=== PATIENT | male | born 1950 | race Caucasian/White ===

== ENCOUNTER 2018-09-28 11:01 | Inpatient (IN) | payer MEDICARE, SELFPAY ==
[2018-09-28] VITALS (11 sets, daily range): BP systolic 103–135; BP diastolic 59–102; PULSE 82–160; RESP 14–23; TEMP 36.2–36.7; O2SAT 93–100; BMI 27.3
--- NOTE | 2018-09-28 | DI.ECHO.S_ITS ---
[facility] +---------+ : : [address] : : : : [place], [place] : : : : [id number] : : : : Phone: [phone] Echocardiogram Report + + :Name: ARMINDA ANGEL Study Date: 09/30/2018 Height: 69 in : :[facility] Exam Location: [facility] Weight: 185 lb : : Gender: Male BSA: 2.0 m2 : :: 1950 Age: 67 yrs BP: 135/77 mmHg: :Reason For Study: AFIB : : Performed By: Cali Santos : + + Interpretation Summary Afib with RVR. Normal LV size, mild-moderately concentric LVH; normal wall motion and LV systolic function. EF is 60-65%. Mildly dilated LA; otherwise normal chamber sizes. Normal valvular structure and function. No prior study available for comparison. Procedure: A two-dimensional transthoracic echocardiogram with color flow and Doppler was performed. The study quality was technically good. There is no prior echocardiogram noted for this patient. The patient was in atrial fibrillation with rapid ventricular response during the exam with a heart rate exceeding 100 bpm. The patient had a heart rate of 98-136 beats per minute. Left Ventricle: The left ventricle is normal in size. Left ventricular wall thickness is mild-moderately increased. The ejection fraction is estimated to be 60-65%. There are no focal wall motion abnormalities. There is a mild dyssynchronous contraction pattern, consistent with a conduction abnormality. Right Ventricle: The right ventricle is normal size. Right ventricular systolic function is mildly reduced. Atria: The left atrium is mildly dilated. Right atrial size is normal. The interatrial septum is intact with no evidence for an atrial septal defect. Mitral Valve: The mitral valve is normal in structure and function. There is mild mitral regurgitation. Aortic Valve: The aortic valve is trileaflet. The aortic valve opens well. No aortic regurgitation is present. Tricuspid Valve: The tricuspid valve is normal in structure and function. There is mild to moderate tricuspid regurgitation. The right ventricular systolic pressure is estimated to be at least 29 mmHg based on an estimated right atrial pressure of 8 mm Hg. Pulmonic Valve: The pulmonic valve is not well visualized. Great Vessels: The aortic root is normal size. The dimensions of the ascending aorta are normal. The pulmonary artery is normal size. The IVC is dilated (diameter is greater than 2.1 cm) yet it collapses greater than 50% with a sniff. This suggests a right atrial pressure of 8 mm Hg. Pericardium/ Pleura There is no pericardial effusion. There is no pleural effusion. MMode/2D Measurements & Calculations LVIDd: 4.6 cm Ao root diam: 3.0 cm LVIDs: 2.9 cm Aortic Jxn: 2.5 cm FS: 36.7 % asc Aorta Diam: 3.3 cm EPSS: 0.66 cm Ao Arch Diam (Prox Trans): 2.9 cm IVSd: 1.4 cm LVPWd: 1.2 cm LV levin. diameter/BSA (cm/m^2): 2.3 LV sys. diameter/BSA (cm/m^2): 1.5 LA dimension: 3.9 cm RA long axis: 4.3 cm LA A2 area: 22.5 cm2 RA area: 14.9 cm2 LA A4 area: 24.8 cm2 RA vol: 43.6 ml LA length (vol): 6.3 cm RA : 21.8 ml/m2 LA vol: 75.2 ml IVC diam: 2.5 cm LA vol index: 37.7 ml/m2 Doppler Measurements & Calculations Ao V2 max: 97.1 cm/sec LVOT Max David: 60.0 cm/sec Ao V2 mean: 69.2 cm/sec LV V1 max P.5 mmHg Ao max P.8 mmHg LV V1 VTI: 8.8 cm Ao mean P.1 mmHg sev ratio: 0.55 Ao V2 VTI: 15.9 cm MV E max david: 90.2 cm/sec TR max david: 226.9 cm/sec MV A max david: 1.7 cm/sec TR max P.6 mmHg MV E/A: 52.2 PA V2 max: 46.5 cm/sec Med Peak E' David: 6.0 cm/sec PA V2 mean: 34.7 cm/sec E/E' med: 15.1 PA mean P.54 mmHg Lat Peak E' David: 11.2 cm/sec PA pr(Accel): 36.6 mmHg E/E' lat: 8.0 PA Accel Time: 0.08 sec E/e' average: 11.6 MV dec time: 0.11 sec Reading Physician:07:31 PM
--- NOTE | 2018-09-28 | DI.CT.S_ITS ---
PROCEDURE: CT LUMBAR SPINE WO CON INDICATIONS: BACK PAIN TECHNIQUE: Noncontrast 3 mm thick sections acquired from the T12 level to the sacrum. Sagittal and coronal reformats were constructed. For radiation dose reduction, the following was used: automated exposure control. COMPARISON: [facility], CT, ABDOMEN/PELVIS WITH CONTRAST, 06/10/2017, 15:33. FINDINGS: Image quality: Excellent. Bones: No acute vertebral body compression fractures. There are mild compression deformities seen involving each lumbar level, without acute features. The compression deformities appear similar to the 2017 CT examination. No suspicious lytic or blastic bony lesions. Central spinal caliber is of normal overall caliber. No pars defects. Mild dextroconvex scoliotic curvature is seen. No focal AP alignment abnormality is seen. T12-L1: Normal. L1-L2: Normal. L2-L3: The disc height is relatively well-preserved. Mild disc bulge is seen. There is mild bilateral neural foraminal narrowing seen. Mild to moderate central canal narrowing is seen. L3-L4: The disc height is well-preserved. Vacuum disc phenomenon is seen at this level. Mild to moderate disc bulge is seen, which is eccentric to the left. There is moderate bilateral neural foraminal narrowing seen, left worse than right. Mild central canal narrowing is seen. L4-L5: Mild to moderate loss of disc height is seen on the right side. Vacuum disc phenomenon is seen at this level. Moderate generalized disc bulge is seen. Mild facet joint hypertrophy is seen. There is moderate to severe bilateral neural foraminal narrowing seen at this level. Mild to moderate central canal narrowing is seen. L5-S1: The disc height is relatively well-preserved. Mild generalized disc bulge is seen. Mild facet joint hypertrophy is seen. There is moderate left-sided and mild right-sided neural foraminal narrowing seen. No significant central canal narrowing is seen. Soft tissues: No retroperitoneal masses or hematomas. Visualized aorta is normal in caliber. Atherosclerotic calcification is noted. The kidneys appear mildly atrophic. IMPRESSION: No definite, acute abnormalities are seen. Multiple levels of compression deformities are seen, which are similar to 2017. Multiple levels of degenerative change are seen, which are most prominent at the L4-L5 level. Dictated by: René Dunn M.D. on 09/28/2018 at 14:55 Approved by: René Dunn M.D. on 09/28/2018 at 15:00
[2018-09-28 11:36] LABS: Add Manual Diff / Slide Review NO; Basophils Percent Auto 0.7 % (0-2); Hematocrit 45.5 % (41-53); Hemoglobin 15.2 g/dL (13.5-17.5); Mean Corpuscular HGB Conc 33.3 % (30-36); Mean Corpuscular Hemoglobin 33.5 PG (26-34); Mean Corpuscular Volume 100.6 fL (80-100); Monocytes Percent Auto 9.3 % (3-14); Neutrophils Absolute Auto 2300 /uL (3000-5900); Platelet Count 160 X10^3/uL (150-400); Red Blood Cell Count 4.52 X10^6/uL (4.5-5.9); Red Cell Distribution Width 14.2 % (11.6-14.8); White Blood Cell Count 3.7 X10^3/uL (4.5-11.0)
[2018-09-28 11:48] LABS: Alanine Aminotransferase 31 IU/L (21-72); Albumin 3.8 g/dL (3.5-5.0); Albumin Globulin Ratio 1.1 (1.0-2.8); Alkaline Phosphatase 94 U/L (38-126); Aspartate Aminotransferase 44 IU/L (17-59); BUN Creatinine Ratio 16.7 (6-22); Bilirubin Total 0.6 mg/dL (0.2-1.3); Blood Urea Nitrogen 15 mg/dL (9-20); Calcium 8.7 mg/dL (8.4-10.2); Carbon Dioxide 29 mmol/L (22-32); Chloride 105 mmol/L (98-107); Creatine Kinase 66 U/L (55-170); Estimated Glomerular Filt Rate > 60.0 mL/min (>60); Globulin 3.4 g/dL (1.7-4.1); Glucose 90 mg/dL (80-110); HEMOLYSIS 19 (0-50); Lipase 61 U/L (23-300); Potassium 3.6 mmol/L (3.4-5.1); Sodium 143 mmol/L (137-145); Total Protein 7.2 g/dL (6.3-8.2)
[2018-09-28] MEDS: SODIUM CHLORIDE 0.9% 1,000 ML 1000 ML IV (11:53)
[2018-09-28] MEDS: KETOROLAC 60 MG/2 ML VIAL 15 MG IV (11:54)
[2018-09-28] MEDS: dilTIAZem 5 MG/ML SDV 20 MG IV (11:54)
[2018-09-28 11:59] LABS: Troponin I 0.041 ng/mL (0.01-0.034)
--- NOTE | 2018-09-28 12:12 | PC.NURSE ---
Pt complained itching in on arm with IV. Reports itching started immediately after iv medications were pushed. Erythemic rash noted on fore arm. Informed the provider. No new orders at this time.
[2018-09-28] MEDS: SODIUM CHLORIDE 0.9% 1,000 ML 100 ML IV (14:32)
[2018-09-28] MEDS: METOPROLOL TARTRATE 5 MG/5 ML INJ IV ×2 (14:35→17:15)
--- NOTE | 2018-09-28 15:19 | P.HP_ITS ---
History of Present Illness Date Patient Seen: 09/28/18 Time Patient Seen: 15:16 Chief complaint: PAIN L SIDE BACK PAIN ALL THE WAY ACROSS Narrative: - PATIENT IS A 67 YO MALE WITH A PAST MEDICAL HISTORY SIGNIFICANT FOR ETOH ABUSE AND POSS HTN ; NO PCP; LIVES WITH FAMILY; NON COMPLIANT MEDICALLY - PATIENT IS NOT TAKING ANY RX MEDICATIONS AND QUICK ETOH USE 2 WEEKS AGO - HE PRESENTED TO THE ED WITH COMPLAINT OF BACK PAIN; WEAKNESS AND SOB FOR LAST FEW DAYS - HE STATED THAT HE HAS BEEN FEELING WEAK AND OUT OF BREATH DURING AMBULATION THIS DAYS - HE DOES ADMIT TO A SEDENTARY LIFESTYLE HOWEVER - HE REPORTED SOME LOWER BACK PAIN ASSOCIATED WITH ACTIVITIES WHICH HAS BEEN WORSENING LATELY - HE DENIED ANY PROSTATE ISSUES AND NO HX OF RENAL STONES OR INJURIES IN THE ED, HE WAS FOUND TO HAVE ATRIAL FIB WHICH IS NEW TO ME, GIVEN CARDIZEM AND REFERRED FOR ADMISSION FOR FURTHER MANAGEMENT HIS MOTHER AND BROTHER IN THE ROOM BOTH HAVE AFIB . Patient History Family & Social History Family History: Reviewed 09/28/18 by Shelly Hardy DO Safety & Behavioral: Feels Safe in Current Yes Environment Been Physically Hurt or No Threatened By a Person Tobacco & Substance use: Smoking Status Current every day smoker alcohol intake frequency other Substance Use Type does not use Meds Home Medications Medication Instructions Recorded Confirmed Type No Known Home Medications 09/28/18 09/28/18 History Allergies Allergy/AdvReac Type Severity Reaction Status Date / Time No Known Drug Allergies Allergy Verified 09/28/18 11:42 Review of Systems Review of Systems All systems reviewed & are unremarkable except as noted in HPI and below Exam Vital Signs (past 8 hours): - 09/28/18 11:05 09/28/18 11:30 09/28/18 11:54 Temperature 98.1 F Pulse Rate 160 H 154 H 138 H Respiratory Rate 14 23 Blood Pressure 133/102 H 133/100 H Blood Pressure [Left Arm] 127/99 H Pulse Oximetry 100 99 09/28/18 12:00 09/28/18 12:30 09/28/18 14:00 Temperature 97.3 F L Pulse Rate 89 82 118 H Respiratory Rate 17 21 16 Blood Pressure 133/90 Blood Pressure [Left Arm] 103/71 108/81 Pulse Oximetry 93 97 97 09/28/18 14:02 09/28/18 14:43 09/28/18 15:00 Temperature 97.4 F L Pulse Rate 108 H 106 H 106 H Respiratory Rate 22 20 Blood Pressure 126/88 114/80 135/90 Blood Pressure [Left Arm] Pulse Oximetry 98 97 Oxygen Delivery Method Room Air Narrative Exam Narrative: NO ACUTE DISTRESS. PATIENT IS ALERT ORIENTED X3. VITAL SIGNS STABLE HEAD ATRAUMATIC NORMOCEPHALIC NECK : SUPPLE WITHOUT ADENOPATHY NO CAROTID BRUITS EYE: EOMI, PERRLA, NORMAL CONJUNCTIVA; NO JAUNDICE CHEST: REGULAR RATE. NO RUBS. PMI IS NON DISPLACED. NO MURMURS; NORMAL S1- S2 PULMONARY: DECREASED BS OVER THE BASES. MILD BIBASILAR CRACKLES NOTED; NO INCREASED DULLNESS TO PERCUSSION ABDOMEN: SOFT. NONTENDER. NONDISTENDED. BOWEL SOUNDS ARE PRESENT IN ALL 4 QUADRANTS. NO MASS. EXTREMITIES: NO EDEMA.. NO CYANOSIS CLUBBING NOTED. NEURO: CRANIAL NERVES 2-12 GROSSLY INTACT. NO FOCAL NEUROLOGICAL DEFICIT NOTED. MSK: NORMAL RANGE OF MOTION FOR AGE. NO JOINT EFFUSION. SKIN: NORMAL FOR ETHNICITY; NO ECCHYMOSIS. NO LESION. GOOD TURGOR.; NO RASHES : NORMAL EXTERNAL GENITALIA. PSYCH : APPROPRIATE MOOD AND AFFECT. ALERT AWAKE ORIENTED X3 Objective Labs Result Diagrams: 09/28/18 11:22 09/28/18 11:22 Labs: Laboratory Results - last 24 hr 09/28/18 09/28/18 11:22 11:22 WBC 3.7 L RBC 4.52 Hgb 15.2 Hct 45.5 MCV 100.6 H MCH 33.5 MCHC 33.3 RDW 14.2 Plt Count 160 Neut % (Auto) 61.0 Lymph % (Auto) 28.0 [place] % (Auto) 9.3 Eos % (Auto) 1.0 L Baso % (Auto) 0.7 Neut # (Auto) 2300 L Sodium 143 Potassium 3.6 Chloride 105 Carbon Dioxide 29 BUN 15 Creatinine 0.90 Estimated GFR > 60.0 BUN/Creatinine Ratio 16.7 Glucose 90 Calcium 8.7 Total Bilirubin 0.6 AST 44 ALT 31 Alkaline Phosphatase 94 Total Creatine Kinase 66 CK-MB (CK-2) TNP CK-MB (CK-2) Rel Index TNP Troponin I 0.041 H Total Protein 7.2 Albumin 3.8 Globulin 3.4 Albumin/Globulin Ratio 1.1 Lipase 61 Assessment & Plan Plan: Assessment/Plan Narrative: IMPRESSION AND PLAN NEW ONSET AFIB; ANKUSH SCORE IS ABOUT 2; HR CONTROLLED AFTER CARDIZEM BOLUS GIVEN IN ED; WILL START ON METOPROLOL THIS PM AT LOW DOSE IF ABLE TO TORO; LEVONOX AND WARFARIN TO BE STARTED WELL; GET ECHO WELL; TELE AT ALL TIMES; GET UA AND TSH; SERIAL EKG TO FOLLOW INDICATED SOB/LINDO; LIKELY DUE TO PHYSICAL DECONDITIONING ; WILL GET CT LOWET BACK TO RULE ANY OTHER PATHOLOGY; PT/OT; AMBULATE TID ; OOB/ IN CHAIR WITH EACH MEAL; ECHO TO RULE OUT CARDIAC COMPONENT ETOH ABUSE; CIWA ; WATCH FOR S/S OF WITHDRAWALS; PRN ATIVAN ORDERED ; CONSIDER LIBRIUM INDICATED MACROCYTOSIS WITHOUT ANEMIA; MONITOR ONLY FOR NOW ELEVATED TROP; LIKELY DUE TO CARDIAC STRAIN DUE TO EXCESSIVE HR; NO ACS SUSPECTED; MON ITOR WITH AM LABS POSS HTN PER HX; METOPROLOL; TREAT INDICATED MEDICAL NON COMPLIANCE; EXTENSIVE COUNSELING GIVEN DURATION OF STAY : 3-5 DAYS TIME SPEND 45 MINS
--- NOTE | 2018-09-28 15:42 | PC.NURSE ---
Raymundo arrived from ED at 1405 via stretcher. His HR ranged from 109-126. Tele shows Afib. He was given Metoprolol 5mg IVP. Per report from ED RN, his Troponin was slightly elevated. Raymundo denies chest pain or shortness of breath. Color pink. Resting quietly in bed. Supportive family present. IV saline lock L forearm appears stable in that pen haylie parameters have not been exceeded.
[2018-09-28] MEDS: HYDROCODONE/ACET 5/325 TABLET 1 TAB PO (16:09)
[2018-09-28] MEDS: DIGOXIN 500 MCG/2 ML AMPUL IV (16:12)
[2018-09-28 17:10] LABS: Appearance Urine UA CLEAR; Bilirubin Urine UA NEGATIVE (NEGATIVE); Color Urine UA YELLOW; Glucose Urine UA TRACE g/dL (Normal); Ketones Urine UA NEGATIVE (NEGATIVE); Leukocyte Esterase Urine UA NEGATIVE (NEGATIVE); Nitrite Urine UA NEGATIVE (Negative); Occult Blood Urine UA NEGATIVE (Negative); Protein Urine UA 1+ (Negative); Specific Gravity Urine UA 1.025 (1.000-1.035); Urobilinogen Urine UA 0.2 E.U./dL (0.2)
[2018-09-28] MEDS: WARFARIN 5 MG TABLET PO (17:15)
--- NOTE | 2018-09-28 17:41 | ED_ITS ---
HPI - Back Pain/Injury General Chief Complaint: Back Pain/Injury Stated Complaint: PAIN L SIDE BACK PAIN ALL THE WAY ACROSS Time Seen by Provider: 09/28/18 11:13 Source: patient and family Mode of arrival: ambulatory Limitations: no limitations History of Present Illness HPI Narrative: 67-year-old male, nonsmoker with history of hypertension at extensive alcohol abuse presents with family for evaluation of low back pain which has been present for a few weeks. He states that he thinks his back pain was worsened when he was lifting pallets for his toe back home in [place]. He came to [place] about 3 weeks ago when he was starting to go down a depressive pathway in [place] and wanted to be around friends and family. He routinely drinks at least 6 beers per day but has had no alcohol in the past few weeks. He denies any trouble controlling bowel or bladder. He denies numbness, tingling or weakness. He states his pain is worse with motion and improves with rest. He denies any chest pain or shortness of breath. MD Complaint: back pain Onset (ago): week(s) Duration: constant Similar Symptoms Previously: Yes Location: lumbar spine Severity: moderate Quality: aching Radiation: none Relieving factors: none Exacerbating factors: none Context: while lifting Associated symptoms: denies other symptoms Related Data Home Medications Medication Instructions Recorded Confirmed No Known Home Medications 09/28/18 09/28/18 Allergies Allergy/AdvReac Type Severity Reaction Status Date / Time No Known Drug Allergies Allergy Verified 09/28/18 11:42 Review of Systems Review of Systems All systems reviewed & are unremarkable except as noted in HPI and below Constitutional Denies chills, Denies fever(s), Denies lethargy and Denies weakness Eyes Denies change in vision, Denies eye discharge, Denies irritation and Denies loss of vision ENT Ears, Nose, Mouth, and Throat: Denies change in voice, Denies neck pain and Denies sore throat Cardiovascular Denies chest pain, Denies irregular heart rhythm, Denies lightheadedness, Denies palpitations, Denies dyspnea, Denies dyspnea on exertion and Denies orthopnea Respiratory Denies cough, Denies dyspnea, Denies dyspnea on exertion and Denies wheezing Gastrointestinal Gastrointestinal: Denies abdominal pain, Denies change in bowel habits, Denies diarrhea, Denies nausea and Denies vomiting Genitourinary Denies hematuria, Denies flank pain, Denies urinary incontinence and Denies urinary urgency Musculoskeletal Reports back pain and Denies neck pain Integumentary/Breasts Denies pruritus, Denies erythema, Denies rash and Denies wounds Neurologic Denies confusion, Denies loss of vision and Denies weakness Psychiatric Denies anxiety, Denies confusion, Denies depression, Denies homicidal ideation and Denies suicidal ideation Endocrine Denies palpitations Hematologic/Lymphatic Denies easy bruising Allergic/Immunologic Denies wheezing PFSH Medical History ETOH abuse (Acute) Family History Father Heart disease Mental health problem Mother Age: 88 Cancer Heart disease Hypertension Sister Heart disease Mental health problem Pacemaker Social History household members: none Smoking Status: Former smoker alcohol intake: former Exam Narrative Exam Narrative: GENERAL: Pleasantly confused 67-year-old male in no obvious distress. HEAD: Atraumatic. Normocephalic. No temporal or scalp tenderness. EYES: Pupils equal round and reactive. Extraocular motions intact. No scleral icterus. No injection or drainage. ENT: Nose without bleeding, purulent drainage or septal hematoma. Throat without erythema, tonsillar hypertrophy or exudate. Uvula midline. Airway patent. NECK: Trachea midline. No JVD or lymphadenopathy. Supple, nontender, no meningeal signs. CARDIOVASCULAR: Tachycardic and irregular rhythm without murmurs, gallops, or rubs. RESPIRATORY: Clear to auscultation. Breath sounds equal bilaterally. No wheezes , rales, or rhonchi. GASTROINTESTINAL: Abdomen soft, non-tender, nondistended. No hepato-splenomegaly , or palpable masses. No guarding. EXTREMITIES: No clubbing, cyanosis, or edema. No joint tenderness, effusion, or edema noted. BACK: Nontender without deformity or crepitance. Mild tenderness to palpation of paraspinal muscles of lumbar spine NEURO: AOx3. SKIN: No rash or erythema. Initial Vital Signs Initial Vital Signs: Vital Signs Temperature 98.1 F 09/28/18 11:05 Pulse Rate 160 H 09/28/18 11:05 Respiratory Rate 14 09/28/18 11:05 Blood Pressure 133/102 H 09/28/18 11:05 Pulse Oximetry 100 09/28/18 11:05 Scores CHADS-VASc Congestive heart failure: no Hypertension: yes Age 75 years or older: no Diabetes mellitus: no Stroke, TIA, or TE: no Vascular disease: no Age 65 to 74 years: yes Sex category (female): Male CHADS-VASc Score: 2 Course Orders Ordered: ED Orders 09/28/18 11:22 Complete Blood Count AUTO DIFF Stat Comprehensive Metabolic Panel Stat Lipase Stat Troponin & CK Cardiac Panel Stat 09/28/18 15:43 Consult to Occupational Therapy Evaluate & Treat Consult to Physical Therapy Evaluate & Treat 09/28/18 16:08 Consult to Salt Washer Routine 09/28/18 17:00 Urinalysis Sreen (Dip Only) Routine 09/28/18 17:25 TSH w/ Reflex to FT4 Routine 09/29/18 05:00 CBC [Complete Blood Count AUTO DIFF] DAILY Comprehensive Metabolic Panel DAILY Magnesium DAILY Phosphorous DAILY Trop I [Troponin I] Routine Acetaminophen (Tylenol) 650 mg PO Q6HR PRN PRN Reason: As Needed for Fever/Mild Pain Hydrocodone Bitart/Acetaminophen ([place] 5/325) 1 tab PO Q4HR PRN PRN Reason: Pain, Moderate (4-6) Last Admin: 09/28/18 16:09 Dose: 1 tab Digoxin (Lanoxin) 500 mcg IV DAILY PRN PRN Reason: HR >110 Last Admin: 09/28/18 16:12 Dose: 500 mcg Enoxaparin Sodium (Lovenox) 85 mg 1 mg/kg (85 mg) SUBCUT BID [facility] Sodium Chloride (Normal Saline 0.9%) 1,000 mls @ 100 mls/hr IV CONT [place] Last Admin: 09/28/18 14:32 Dose: 100 mls/hr Lorazepam (Ativan) 0.5 mg IV Q6HR PRN PRN Reason: Anxiety Metoprolol Tartrate (Lopressor) 12.5 mg PO BID [facility] Metoprolol Tartrate (Lopressor) 5 mg IV Q6H PRN PRN Reason: SBP>180 AND/OR HR >110 Last Admin: 09/28/18 14:35 Dose: 5 mg Morphine Sulfate (Morphine) 2 mg IV Q4HR PRN PRN Reason: Pain, Moderate (4-6) Pantoprazole Sodium (Protonix) 40 mg IV DAILY [place] Tramadol HCl (Ultram) 50 mg PO QID PRN PRN Reason: Pain, Moderate (4-6) Discontinued Medications Acetaminophen (Tylenol) 650 mg PO Q6HR PRN PRN Reason: As Needed for Fever/Mild Pain Digoxin (Lanoxin) 500 mcg IV DAILY PRN PRN Reason: HR >110 Diltiazem HCl (Cardizem) 20 mg IV NOW ONE Stop: 09/28/18 11:46 Last Admin: 09/28/18 11:54 Dose: 20 mg Sodium Chloride (Normal Saline 0.9%) 1,000 mls @ 1,000 mls/hr IV BOLUS PRN PRN Reason: Fluid replacement Last Infusion: 09/28/18 13:14 Dose: 0 mls/hr Admin: 09/28/18 11:53 Dose: 1,000 mls/hr Ketorolac Tromethamine (Toradol) 15 mg IV NOW ONE Stop: 09/28/18 11:46 Last Admin: 09/28/18 11:54 Dose: 15 mg Metoprolol Tartrate (Lopressor) 12.5 mg PO BID [place] Metoprolol Tartrate (Lopressor) 5 mg IV Q6H PRN PRN Reason: SBP>180 AND/OR HR >110 Metoprolol Tartrate (Lopressor) 5 mg IV NOW ONE Stop: 09/28/18 16:55 Last Admin: 09/28/18 17:15 Dose: 5 mg Morphine Sulfate (Morphine) 2 mg IV Q4HR PRN PRN Reason: Pain, Severe (7-10) Morphine Sulfate (Morphine) 2 mg IV Q4HR PRN PRN Reason: Pain, Severe (7-10) Pantoprazole Sodium (Protonix) 40 mg IV DAILY [facility] Warfarin Sodium (Coumadin) 5 mg PO NOW ONE Stop: 09/28/18 15:34 Last Admin: 09/28/18 17:15 Dose: 5 mg Reevaluation(s) Reevaluation #1: Or getting initial vitals heart rate was noted to be in the 160s. Patient is put on the monitor and an EKG notes rapid AFib which to the best we can tell is a new diagnosis. Reevaluation #2: Patient was given Cardizem 10 mg IVP which did slow him to the mid to upper 80s, he gradually was creeping back up to upper 90s and low 100s by admission Consultations Consultation #1: Dr. Martinez is happy to accept Vital Signs - 8 hr 09/28/18 11:05 09/28/18 11:30 09/28/18 11:54 Temperature 98.1 F Pulse Rate 160 H 154 H 138 H Respiratory Rate 14 23 Blood Pressure 133/102 H 133/100 H Blood Pressure [Left Arm] 127/99 H Pulse Oximetry 100 99 09/28/18 12:00 09/28/18 12:30 09/28/18 14:00 Temperature 97.3 F L Pulse Rate 89 82 118 H Respiratory Rate 17 21 16 Blood Pressure 133/90 Blood Pressure [Left Arm] 103/71 108/81 Pulse Oximetry 93 97 97 09/28/18 14:02 09/28/18 14:43 09/28/18 15:00 Temperature 97.4 F L Pulse Rate 108 H 106 H 106 H Respiratory Rate 22 20 Blood Pressure 126/88 114/80 135/90 Blood Pressure [Left Arm] Pulse Oximetry 98 97 09/28/18 16:12 Temperature Pulse Rate 124 H Respiratory Rate Blood Pressure 127/59 L Blood Pressure [Left Arm] Pulse Oximetry MDM - Back Pain/Injury Lab Data Result diagrams: 09/28/18 11:22 09/28/18 11:22 Lab Results 09/28/18 09/28/18 09/28/18 Range/Units 11:22 11:22 16:00 WBC 3.7 L (4.5-11.0) X10^3/uL RBC 4.52 (4.5-5.9) X10^6/uL Hgb 15.2 (13.5-17.5) g/dL Hct 45.5 (41-53) % MCV 100.6 H (80-100) fL MCH 33.5 (26-34) PG MCHC 33.3 (30-36) % RDW 14.2 (11.6-14.8) % Plt Count 160 (150-400) X10^3/uL Neut % (Auto) 61.0 (50-75) % Lymph % (Auto) 28.0 (25-40) % [place] % (Auto) 9.3 (3-14) % Eos % (Auto) 1.0 L (2-4) % Baso % (Auto) 0.7 (0-2) % Neut # (Auto) 2300 L (5261-6244) /uL Sodium 143 (137-145) mmol/L Potassium 3.6 (3.4-5.1) mmol/L Chloride 105 (98-107) mmol/L Carbon Dioxide 29 (22-32) mmol/L BUN 15 (9-20) mg/dL Creatinine 0.90 (0.66-1.25) mg/dL Estimated GFR > 60.0 (>60) mL/min BUN/Creatinine Ratio 16.7 (6-22) Glucose 90 (80-110) mg/dL Calcium 8.7 (8.4-10.2) mg/dL Total Bilirubin 0.6 (0.2-1.3) mg/dL AST 44 (17-59) IU/L ALT 31 (21-72) IU/L Alkaline Phosphatase 94 (38-126) U/L Total Creatine Kinase 66 (55-170) U/L CK-MB (CK-2) TNP CK-MB (CK-2) Rel Index TNP Troponin I 0.041 H (0.01-0.034) ng/mL Total Protein 7.2 (6.3-8.2) g/dL Albumin 3.8 (3.5-5.0) g/dL Globulin 3.4 (1.7-4.1) g/dL Albumin/Globulin Ratio 1.1 (1.0-2.8) Lipase 61 (23-300) U/L Urine Color Yellow Urine Appearance Clear Urine pH 5.0 (4.5-8.0) Ur Specific [place] 1.025 (1.000-1.035) Urine Protein 1+ H (Negative) Urine Glucose (UA) Trace (Normal) g/dL Urine Ketones Negative (NEGATIVE) Urine Occult Blood Negative (Negative) Urine Nitrate Negative (Negative) Urine Bilirubin Negative (NEGATIVE) Urine Urobilinogen 0.2 (0.2) E.U./dL Ur Leukocyte Esterase Negative (NEGATIVE) ECG Data Attestation: I personally reviewed and interpreted this ECG as follows: Prior ECG tracings: not available for review Interpretation: Rapid AFib in the 150s MDM Narrative Medical decision making narrative: Diagnoses regarding his back pain such as cauda equina an epidural abscess or considered but thought much less likely given his lack of radiating symptoms or neurologic findings. He is atrial fibrillation is newly diagnosed and he has no primary care provider locally for workup. He will be admitted for further characterization and stabilization of his condition. Discharge Plan Departure Patient Disposition: Admitted As Inpatient Clinical Impression: Atrial fibrillation, new onset Discharge Date/Time: 09/28/18 14:09 Interventions: ED Discharge Assessment Last Done: 09/28/18 14:02 Admit Date/Time: 09/28/18 13:16 Admit Provider: Shelly Hardy
[2018-09-28 18:18] LABS: TSH w/ Reflex to FT4 3.77 uIU/mL (0.47-4.68)
[2018-09-28] MEDS: ACETAMINOPHEN 325 MG TABLET 650 MG PO (19:23)
--- NOTE | 2018-09-28 19:28 | PC.NURSE ---
1650: notified of pt HR and IV metoprolol orders received. Also clarified admission status of inpatient ACUTE CARE, not ICU.
[2018-09-28] MEDS: METOPROLOL IR 12.5 MG TABLET PO (21:19)
[2018-09-28] MEDS: ENOXAPARIN 100 MG/ML SYRINGE 85 MG SUBCUT (22:56)
[2018-09-28] MEDS: TRAMADOL 50 MG TABLET PO (23:12)
[2018-09-28] MEDS: MORPHINE 2 MG/ML INJ IV (23:20)
[2018-09-29] VITALS (10 sets, daily range): BP systolic 102–112; BP diastolic 57–75; PULSE 89–103; RESP 18–20; TEMP 36.1–36.6; O2SAT 93–98
[2018-09-29] MEDS: SODIUM CHLORIDE 0.9% 1,000 ML 100 ML IV (01:15)
[2018-09-29] MEDS: HYDROCODONE/ACET 5/325 TABLET 1 TAB PO ×3 (02:43→21:05)
[2018-09-29 05:43] LABS: Add Manual Diff / Slide Review NO; Basophils Percent Auto 0.5 % (0-2); Eosinophils Percent Auto 1.1 % (2-4); Hematocrit 39.5 % (41-53); Hemoglobin 13.2 g/dL (13.5-17.5); Lymphocytes Percent Auto 35.7 % (25-40); Mean Corpuscular HGB Conc 33.3 % (30-36); Mean Corpuscular Hemoglobin 33.7 PG (26-34); Mean Corpuscular Volume 101.1 fL (80-100); Monocytes Percent Auto 9.6 % (3-14); Neutrophils Absolute Auto 1100 /uL (3000-5900); Neutrophils Percent Auto 53.1 % (50-75); Platelet Count 118 X10^3/uL (150-400); Red Blood Cell Count 3.91 X10^6/uL (4.5-5.9); Red Cell Distribution Width 14.3 % (11.6-14.8); White Blood Cell Count 2.2 X10^3/uL (4.5-11.0)
[2018-09-29 05:54] LABS: Alanine Aminotransferase 30 IU/L (21-72); Albumin 2.7 g/dL (3.5-5.0); Alkaline Phosphatase 60 U/L (38-126); Aspartate Aminotransferase 35 IU/L (17-59); Bilirubin Total 0.5 mg/dL (0.2-1.3); Blood Urea Nitrogen 12 mg/dL (9-20); Calcium 7.9 mg/dL (8.4-10.2); Carbon Dioxide 26 mmol/L (22-32); Chloride 107 mmol/L (98-107); Estimated Glomerular Filt Rate > 60.0 mL/min (>60); Globulin 2.6 g/dL (1.7-4.1); Glucose 82 mg/dL (80-110); HEMOLYSIS < 15 (0-50); Magnesium 1.4 mg/dL (1.6-2.3); Phosphorous 2.7 mg/dL (2.3-3.7); Potassium 3.8 mmol/L (3.4-5.1); Sodium 140 mmol/L (137-145); Total Protein 5.3 g/dL (6.3-8.2)
[2018-09-29 06:00] LABS: Troponin I 0.053 ng/mL (0.01-0.034)
--- NOTE | 2018-09-29 06:52 | PC.NURSE ---
Nice gentleman, scared and worried about being here. He is from out of town and came to visit his mother. Admitted with back pain he states started when he moved something at home. He was discovered to have new onset afib. Echo ordered, continue to enlighten patient as much as possible to alleviate his concerns. Pain in night was hard to control. Morphine IVP and norco given. This combo worked, and he now feels he is not needing pain med at this time. Sat upright in bed, with pillows behind him. More comfortable at this time.
[2018-09-29 08:48] LABS: INR 1.3 (0.9-1.3)
--- NOTE | 2018-09-29 09:08 | CM.DANOTE ---
DCP: Case received, EMR reviewed and met with patient. Introduced self and role. DCP template completed with information currently available. Patient is a 67 year old male who admitted yesterday afternoon to the care of the hospitalist team. Patient does not have a primary doctor. Payer: confirmed; Medicare. Patient came to hospital with symptoms of lower back discomfort. Patient carries diagnosis of A-Fib. Patient also has history of ETOH abuse, and according to notes, stopped drinking approximately 2 weeks ago. Patient is on CIWA protocol as well. Met with patient in room. Alert and oriented, pleasant. Stated that he is originally from [place], [place], and came up here at family's request. Stated that he has a large home in [place], [place], which is near [place]. Patient stated that he misses his home, and eventually wants to go back there. At this time, patient is staying with his mother and brother. P:DCP to continue to follow. Patient should be able to return home when stable, but will monitor how he progresses here in hospital. Jenn Suggs RN/Youth Development Specialist
[2018-09-29] MEDS: ASPIRIN EC 81 MG TABLET PO (09:34)
[2018-09-29] MEDS: ENOXAPARIN 100 MG/ML SYRINGE 85 MG SUBCUT ×2 (09:35→21:02)
[2018-09-29] MEDS: PANTOPRAZOLE 40 MG VIAL IV (09:35)
[2018-09-29] MEDS: METOPROLOL IR 12.5 MG TABLET PO ×2 (09:35→21:02)
[2018-09-29] MEDS: ACETAMINOPHEN 325 MG TABLET 650 MG PO ×2 (09:36→13:52)
--- NOTE | 2018-09-29 10:23 | PC.NURSE ---
Addendum entered by Chiqui Machuca R.N. 09/29/18 13:59: Shift summary: Alert and oriented X3. Calm and cooperative with care interventions. Back pain well-controlled with PO Vicodin (rated 4/10 prior to being medicated this morning). CMS+, denies paresthesias or issues with B/B. Denies chest pain/palpitations/pressure or SOB. Tele monitoring in place, reading A-fib with controlled rate per tele report. His heart rate did jump up into the 130's-140's with activity, but goes back down into the 80-100 range at rest. Did NOT require any PRN meds for HR/BP. Troponins trending down, MD aware. Able to make needs known and calls appropriately. Light in reach, bed alarm on. OOB with stand-by assist. Original Note: ECHO: Refused ECHO at approx 1000. This telegraphic typewriter repairer let MD Martinez know- he said it's patient's right to refuse, so that's okay. Per geophysical data technician, can be done tomorrow if patient decides he's agreeable.
--- NOTE | 2018-09-29 11:46 | P.PN_ITS ---
Subjective Date Patient Seen: 09/29/18 Time Patient Seen: 11:45 Interval history: NO PAIN NO SOB OR LINDO DENIED ANY CHEST PAIN OR CHEST PALPITATIONS NURSING REPORTED THAT PATIENT REFUSED HIS ECHO Exam Vital Signs (past 8 hours): - 09/29/18 06:00 09/29/18 07:29 09/29/18 07:40 Temperature 97.8 F 97.4 F L Pulse Rate 102 H 103 H Respiratory Rate 18 20 Blood Pressure 109/62 112/75 Pulse Oximetry 98 95 96 09/29/18 10:23 09/29/18 11:20 Temperature 97.7 F Pulse Rate 99 H Respiratory Rate 20 Blood Pressure 107/71 Pulse Oximetry 95 93 Oxygen Delivery Method Room Air Oxygen Flow Rate 0 Narrative Exam Narrative: NO ACUTE DISTRESS. PATIENT IS ALERT ORIENTED X3. VITAL SIGNS STABLE HEAD ATRAUMATIC NORMOCEPHALIC NECK : SUPPLE WITHOUT ADENOPATHY NO CAROTID BRUITS EYE: EOMI, PERRLA, NORMAL CONJUNCTIVA; NO JAUNDICE CHEST: REGULAR RATE. NO RUBS. PMI IS NON DISPLACED. NO MURMURS; NORMAL S1- S2 PULMONARY: DECREASED BS OVER THE BASES. MILD BIBASILAR CRACKLES NOTED; NO INCREASED DULLNESS TO PERCUSSION ABDOMEN: SOFT. NONTENDER. NONDISTENDED. BOWEL SOUNDS ARE PRESENT IN ALL 4 QUADRANTS. NO MASS. EXTREMITIES: NO EDEMA.. NO CYANOSIS CLUBBING NOTED. NEURO: CRANIAL NERVES 2-12 GROSSLY INTACT. NO FOCAL NEUROLOGICAL DEFICIT NOTED. MSK: NORMAL RANGE OF MOTION FOR AGE. NO JOINT EFFUSION. SKIN: NORMAL FOR ETHNICITY; NO ECCHYMOSIS. NO LESION. GOOD TURGOR.; NO RASHES : NORMAL EXTERNAL GENITALIA. PSYCH : APPROPRIATE MOOD AND AFFECT. ALERT AWAKE ORIENTED X3 Objective Labs Result Diagrams: 09/29/18 05:09 09/29/18 05:09 Labs: Laboratory Results - last 24 hr 09/28/18 09/28/18 09/28/18 11:22 16:00 17:25 WBC RBC Hgb Hct MCV MCH MCHC RDW Plt Count Neut % (Auto) Lymph % (Auto) Rice % (Auto) Eos % (Auto) Baso % (Auto) Neut # (Auto) PT INR Sodium 143 Potassium 3.6 Chloride 105 Carbon Dioxide 29 BUN 15 Creatinine 0.90 Estimated GFR > 60.0 BUN/Creatinine Ratio 16.7 Glucose 90 Calcium 8.7 Phosphorus Magnesium Total Bilirubin 0.6 AST 44 ALT 31 Alkaline Phosphatase 94 Total Creatine Kinase 66 CK-MB (CK-2) TNP CK-MB (CK-2) Rel Index TNP Troponin I 0.041 H Total Protein 7.2 Albumin 3.8 Globulin 3.4 Albumin/Globulin Ratio 1.1 Lipase 61 TSH 3.77 Urine Color Yellow Urine Appearance Clear Urine pH 5.0 Ur Specific [place] 1.025 Urine Protein 1+ H Urine Glucose (UA) Trace Urine Ketones Negative Urine Occult Blood Negative Urine Nitrate Negative Urine Bilirubin Negative Urine Urobilinogen 0.2 Ur Leukocyte Esterase Negative 09/29/18 09/29/18 09/29/18 05:09 05:09 05:09 WBC 2.2 L RBC 3.91 L Hgb 13.2 L Hct 39.5 L MCV 101.1 H MCH 33.7 MCHC 33.3 RDW 14.3 Plt Count 118 L Neut % (Auto) 53.1 Lymph % (Auto) 35.7 Rice % (Auto) 9.6 Eos % (Auto) 1.1 L Baso % (Auto) 0.5 Neut # (Auto) 1100 L PT INR Sodium 140 Potassium 3.8 Chloride 107 Carbon Dioxide 26 BUN 12 Creatinine 0.80 Estimated GFR > 60.0 BUN/Creatinine Ratio 15.0 Glucose 82 Calcium 7.9 L Phosphorus 2.7 Magnesium 1.4 L Total Bilirubin 0.5 AST 35 ALT 30 Alkaline Phosphatase 60 Total Creatine Kinase CK-MB (CK-2) CK-MB (CK-2) Rel Index Troponin I 0.053 H Total Protein 5.3 L Albumin 2.7 L Globulin 2.6 Albumin/Globulin Ratio 1.0 Lipase TSH Urine Color Urine Appearance Urine pH Ur Specific [place] Urine Protein Urine Glucose (UA) Urine Ketones Urine Occult Blood Urine Nitrate Urine Bilirubin Urine Urobilinogen Ur Leukocyte Esterase 09/29/18 08:31 WBC RBC Hgb Hct MCV MCH MCHC RDW Plt Count Neut % (Auto) Lymph % (Auto) Rice % (Auto) Eos % (Auto) Baso % (Auto) Neut # (Auto) PT 15.0 H INR 1.3 Sodium Potassium Chloride Carbon Dioxide BUN Creatinine Estimated GFR BUN/Creatinine Ratio Glucose Calcium Phosphorus Magnesium Total Bilirubin AST ALT Alkaline Phosphatase Total Creatine Kinase CK-MB (CK-2) CK-MB (CK-2) Rel Index Troponin I Total Protein Albumin Globulin Albumin/Globulin Ratio Lipase TSH Urine Color Urine Appearance Urine pH Ur Specific [place] Urine Protein Urine Glucose (UA) Urine Ketones Urine Occult Blood Urine Nitrate Urine Bilirubin Urine Urobilinogen Ur Leukocyte Esterase Assessment & Plan Plan: Assessment/Plan Narrative: IMPRESSION AND PLAN NEW ONSET AFIB; ANKUSH SCORE IS ABOUT 2; HR CONTROLLED ON METOPROLOL; LEVONOX AND WARFARIN THERAPY STARTED; PATIENT REFUSED ECHO; TSH IS WNL AND URINE IS UREMARKABLE; TELE AT ALL TIMES; SERIAL EKG TO FOLLOW INDICATED SOB/LINDO; LIKELY DUE TO PHYSICAL DECONDITIONING ; ; PT/OT; AMBULATE TID ; OOB/ IN CHAIR WITH EACH MEAL; PATIENT REFUSED ECHO. MONITOR CLOSELY; CONT PT/OT ETOH ABUSE; CIWA ; CONSIDER ADDING DAILY ETOH BREVARAGE TO REGIMENT WHILE IN HOUSE; WATCH FOR S/S OF WITHDRAWALS; PRN ATIVAN ORDERED ; CONSIDER LIBRIUM INDICATED MACROCYTOSIS WITHOUT ANEMIA; MONITOR ONLY FOR NOW ELEVATED TROP; LIKELY DUE TO CARDIAC STRAIN DUE TO EXCESSIVE HR; NO ACS SUSPECTED; MONITOR WITH SERIAL LABS ; ON ASA; BETABLOCKER; M.O.N.A. POSS HTN PER HX; METOPROLOL; TREAT INDICATED MEDICAL NON COMPLIANCE; EXTENSIVE COUNSELING GIVEN PT/IN ORDERED DAILY WILL GET 10MG OF WARFARIN TODAY NO GREEN LEAFY VEGETABLE IN DIET WATCH FOR S/S OF BLEEDING WHILE ON ANTICOAGULAT THERAPY DC ONCE ABLE TO HAVE INR THEURAPEUTIC WITH A GOAL OF 2-3 Quality VTE Deep Vein Thrombosis/Pulmonary Embolism Present on Admission: No
[2018-09-29 11:55] LABS: Cholesterol 93 mg/dL (140-199); HDL Cholesterol 36 mg/dL (40-60); LDL Cholesterol Calculated 39 mg/dL (<100); Triglycerides 90 mg/dL (35-150)
[2018-09-29 12:06] LABS: Troponin I 0.043 ng/mL (0.01-0.034)
--- NOTE | 2018-09-29 13:10 | PT.IIE ---
Medical History (Last Reviewed 09/28/18 @ 17:38 by Hernan Wall DO) ETOH abuse (Acute) Physical Therapy Inpatient Evaluation/Re-Eval M1 PT/OT-IP Prior Functional Status Start: 09/29/18 13:59 Freq: NEEDED Status: Active Protocol: Document 09/29/18 13:10 [facility] (Rec: 09/29/18 14:09 [facility] [id number]) Medical Review Prior Functional Status Medical History Reviewed Yes Mobility and Gait indep. community ambulator without device Activities of Daily Living and IADL's indep. I/ADLs Social History Household Members none Living Arrangements House Number of Floors (Floors) Two Floors Number of Stairs To Enter/Railing? no steps to enter/exit Additional Social History Comment pt visiting from [place]- mother and her significant other. He is able to live on main level in that home, all needs on main level. M2 PT-IP Current Condition Start: 09/29/18 13:59 Freq: NEEDED Status: Active Protocol: Document 09/29/18 13:10 [facility] (Rec: 09/29/18 14:09 [facility] [id number]) Physical Therapy Current Condition Current Condition Evaluation Date 09/29/18 Treatment Diagnosis back pain, new onset A-fib, impaired activity tolerance Precautions Lumbar Precautions Log Roll No Twisting Limit Bending Lifting Restriction of 10 lbs Weight Bearing Status Weight Bearing Status Weight Bear as Tolerated M3 PT-IP Subjective Start: 09/29/18 13:59 Freq: NEEDED Status: Active Protocol: Document 09/29/18 13:10 [facility] (Rec: 09/29/18 14:09 [facility] [id number]) Subjective Physical Therapy Visit Type Type Initial Evaluation Visit Start Time 12:45 Visit Stop Time 13:10 Total Visit Minutes 25 Number of OTM CONSULTANT Visits 0 Physical Therapy Visit Comments Patient Comments Pt notes pain in low back in on both sides, not sure when he will be able to go home Patient Goals to decrease pain and get better. Therapy Pain Assessment Location low back Intensity 4 Scale Used Numeric (1 - 10) M4 PT-IP Mobility and Gait Start: 09/29/18 13:59 Freq: NEEDED Status: Active Protocol: Document 09/29/18 13:10 [facility] (Rec: 09/29/18 14:09 [facility] [id number]) PT-Bed Mobility Assessment Rolling Type of Rolling Log Rolling Roll to Right Supine to Sit Supine to Sit Standby Assistance Sit to Supine Sit to Supine Standby Assistance Scooting Scooting to Edge of Bed Standby Assistance PT-Transfer Assessment Sit to and From Stand Sit to and from Stand Standby Assistance Equipment Transfer Assistive Device Gait Belt Transfers Transfer Destination Bed Toilet Transfer Technique Stand Step Pivot Transfer Ability Level of Assist Standby Assistance Comments Mobility Comments pt to toilet, urinated ( unmeasurable), RN notified. Gait Assessment Gait Gait Assistance Required: Standby Assistance Distance (Feet) 60 Assistive Devices Assistive Device Gait Belt Gait Deviations General Gait Pattern Antalgic Decreased Feet Clearance Wide Based Gait Factors Limiting Gait Function Factors Limiting Gait Function Decreased Activity Tolerance Pain Comments Gait Comments no assistive device used, no increase in pain with WB but pain present throughout session PT-Balance Assessment Sitting Balance and Reactions Static Sitting Balance Ability Good Dynamic Sitting Balance Ability Good Standing Balance and Reactions Static Standing Balance Ability Good Dynamic Standing Balance Ability Fair Device Used none M5 PT-IP Objective Assessments Start: 09/29/18 13:59 Freq: NEEDED Status: Active Protocol: Document 09/29/18 13:10 [facility] (Rec: 09/29/18 14:09 [id number] Orientation Orientation/Cognition Level of Alertness Alert Gross Range of Motion Lower Extremity ROM Assessment Within Functional Limits Strength Lower Extremity Strength Assessment Within Functional Limits Hip flexion 4/5 B Knee flexion and extension 5/5 B Ankle DF 5/5 B Coordination Assessment Gross Coordination Gross Coordination WNL Sensation Assessment Sensation Gross Sensation WNL Muscle Tone Muscle Tone WNL Yes M6 PT-IP Treatment Start: 09/29/18 13:59 Freq: NEEDED Status: Active Protocol: Document 09/29/18 13:10 [facility] (Rec: 09/29/18 14:09 [facility] [id number]) Physical Therapy Treatment Education Education Provided Precautions Safety M7 PT-IP Assessment and Plan Start: 09/29/18 13:59 Freq: NEEDED Status: Active Protocol: Document 09/29/18 13:10 [facility] (Rec: 09/29/18 14:09 [facility] [id number]) PT Summary Assessment and Plan Potential Rehabilitation Potential Good Status of Condition at Evaluation Stable Summary Impairments Pain Gait Activity Tolerance Assessment Summary Pt able to ambulate household distance in room (refused to ambulate outside of room this session). He had no loss of balance, did not use an assistive device for gait. Initially, PT evaluation was held due to elevated troponin, now with lab recheck pt's troponin has peaked and declined, but still elevated. Pt's WA up to 135-140 bpm with short gait, O2 saturation WNL on RA. Pt took 2-3 min to recover with WA below 100 bpm. Expect pt to be able to d/c home when medically stable, and management of WA. Goals Bed Mobility Goal Independent Transfer Goal Independent Gait Goal Independent Gait Distance 300 Other Goals STG: Gait x150 ft with no AD and SBA in 1 day. Frequency of Treatment Frequency Of Treatment Once a Day Treatment Plan Physical Therapy Treatment Plan Bed Mobility Training Transfer Training Gait Training Other Recommendations and Next Treatment progress gait without an AD, Focus review log roll Recommendations To Nursing Amount of Assist Needed Standby Assistance Discharge Recommendations PT Discharge Recommendations Home with Assistance
[2018-09-29] MEDS: MAGNESIUM OXIDE 400 MG TABLET PO ×2 (13:52→21:02)
--- NOTE | 2018-09-29 14:54 | OT.IP.TRT ---
Occupational Therapy Treatment Note M3 OT- IP Subjective and Pain Start: 09/29/18 14:50 Freq: Status: Active Protocol: Document 09/29/18 14:50 [facility] (Rec: 09/29/18 14:54 [facility] [id number]) OT- Subjective Occupational Therapy Visit Type Notes Spoke to PT and nursing regarding pt and OT eval not needed at this time.
[2018-09-29] MEDS: WARFARIN 5 MG TABLET 10 MG PO (17:46)
[2018-09-29] MEDS: SODIUM CHLORIDE 0.9% FLUSH 10 ML IV (21:02)
--- NOTE | 2018-09-29 23:44 | PC.NURSE ---
Evening Shift Note- Patient medicated for complaints of pain at 2100 with one vicodin. patient called complaining of 10/10 pain just before 2300. morphine 2mg pulled and prepared to give when patient was found bleeding with IV line in his hand. Patient stated he ripped that thing out cause it was doing any good. cleaned and bandaged bleeding site. morphine 2mg IV wasted.
[2018-09-30] VITALS (12 sets, daily range): BP systolic 110–149; BP diastolic 72–94; PULSE 85–127; RESP 16–24; TEMP 35.8–36.9; O2SAT 94–98
[2018-09-30] MEDS: HYDROCODONE/ACET 5/325 TABLET 1 TAB PO ×3 (01:56→17:44)
[2018-09-30 05:39] LABS: INR 2.1 (0.9-1.3); Prothrombin Time 24.5 SECONDS (10.1-12.7)
--- NOTE | 2018-09-30 05:57 | PC.NURSE ---
pt A&Ox3. pt reports not remembering how he got here in the hospital. pt is calm. no head ache, nausea, or chest pain. 96% on RA. HR 80-90's at rest and goes up to 130's to 140's w/ ambulation. pain controlled with 1 tab norco. call light in reach. bed alarm active.
[2018-09-30] MEDS: LORazepam 2 MG/ML SYRINGE 1 MG IV (08:43)
[2018-09-30] MEDS: ASPIRIN EC 81 MG TABLET PO (08:44)
[2018-09-30] MEDS: SODIUM CHLORIDE 0.9% FLUSH 10 ML IV ×3 (08:44→20:31)
[2018-09-30] MEDS: ENOXAPARIN 100 MG/ML SYRINGE 85 MG SUBCUT (08:44)
[2018-09-30] MEDS: MAGNESIUM OXIDE 400 MG TABLET PO (08:45)
[2018-09-30] MEDS: METOPROLOL IR 12.5 MG TABLET PO ×2 (08:47→20:31)
[2018-09-30] MEDS: ACETAMINOPHEN 325 MG TABLET 650 MG PO (08:47)
[2018-09-30] MEDS: PANTOPRAZOLE 40 MG VIAL IV (08:47)
--- NOTE | 2018-09-30 11:16 | PC.NURSE ---
Addendum entered by Chiqui Machuca R.N. 09/30/18 14:04: Was medicated with 5 mg IV Metoprolol at 1320 for HR sustained >110 (mostly in the 110's but up into the 130's-140's with activity). Re-checked vitals approx 30 minutes later, HR down into the 80's and BP 119/72. Patient tolerated well. Continues to deny chest pain, pressure or palpitations. Does get mildly SOB with exertion. SpO2 on RA 97%. Reports back pain well-managed with 1 tab Vicodin given at 1320. Denies needs/concerns at this time. Call light in reach, bed alarm on. Original Note: Addendum entered by Chiqui Machuca R.N. 09/30/18 11:49: ECHO being done at this time. Original Note: Shift summary: A bit restless/anxious at the beginning of the shift, wondering what the plan is and saying I want to get out of here, whether the doctor says so or not. Hospitalist then spoke with patient, explained what he's thinking as far as a plan. He is going to adjust his Warfarin dosing for this evening, repeat labs tomorrow for PT/INR and re-evaluate tomorrow. ECHO will be done today. Patient verbalized understanding and was agreeable to staying. He was given 1 mg IV Ativan at 0843 and has relaxed considerably. Resting quietly in bed at this time. Respirations regular and unlabored, SpO2 97% on RA. Cont pulse oximetry monitoring ongoing. Denies back pain at this time (got Tylenol at same time as Ativan). Indep in bed, SBA OOB. Saline locked, PO fluid intake encouraged. Able to make needs known and calls appropriately. Light in reach, bed alarm on.
[2018-09-30] MEDS: METOPROLOL TARTRATE 5 MG/5 ML INJ IV (13:16)
--- NOTE | 2018-09-30 13:30 | P.PN_ITS ---
Subjective Date Patient Seen: 09/30/18 Time Patient Seen: 13:25 Interval history: WOULD LIKE TO GO HOME [place] NO FEVER OR CHILLS NO SIDHU/MIGRAINE NO NAUSEA OR VOMITING NO CP/SOB Exam Vital Signs (past 8 hours): - 09/30/18 07:30 09/30/18 07:56 09/30/18 09:18 Temperature 97.2 F L Pulse Rate 107 H Respiratory Rate 20 Blood Pressure 135/77 Pulse Oximetry 96 97 94 09/30/18 09:20 09/30/18 10:42 09/30/18 11:14 Temperature Pulse Rate 100 H 96 H Respiratory Rate Blood Pressure Pulse Oximetry 98 95 Oxygen Delivery Method Room Air Oxygen Flow Rate 0 Narrative Exam Narrative: NO ACUTE DISTRESS. PATIENT IS ALERT ORIENTED X3. VITAL SIGNS STABLE HEAD ATRAUMATIC NORMOCEPHALIC NECK : SUPPLE WITHOUT ADENOPATHY NO CAROTID BRUITS EYE: EOMI, PERRLA, NORMAL CONJUNCTIVA; NO JAUNDICE CHEST: REGULAR RATE. NO RUBS. PMI IS NON DISPLACED. NO MURMURS; NORMAL S1- S2 PULMONARY: DECREASED BS OVER THE BASES. MILD BIBASILAR CRACKLES NOTED; NO INCREASED DULLNESS TO PERCUSSION ABDOMEN: SOFT. NONTENDER. NONDISTENDED. BOWEL SOUNDS ARE PRESENT IN ALL 4 QUADRANTS. NO MASS. EXTREMITIES: NO EDEMA.. NO CYANOSIS CLUBBING NOTED. NEURO: CRANIAL NERVES 2-12 GROSSLY INTACT. NO FOCAL NEUROLOGICAL DEFICIT NOTED. MSK: NORMAL RANGE OF MOTION FOR AGE. NO JOINT EFFUSION. SKIN: NORMAL FOR ETHNICITY; NO ECCHYMOSIS. NO LESION. GOOD TURGOR.; NO RASHES : NORMAL EXTERNAL GENITALIA. PSYCH : APPROPRIATE MOOD AND AFFECT. ALERT AWAKE ORIENTED X3 Objective Labs Result Diagrams: 09/29/18 05:09 09/29/18 05:09 Labs: Laboratory Results - last 24 hr 09/30/18 05:17 PT 24.5 H D INR 2.1 H Assessment & Plan Plan: Assessment/Plan Narrative: IMPRESSION AND PLAN NEW ONSET AFIB; ANKUSH SCORE IS ABOUT 2; HR CONTROLLED ON METOPROLOL; CONT WITH LEVONOX AND WARFARIN THERAPY; INR IS >2; DECR WARFARIN DOSE TODAY; WILL RE-ORDER ECHO FOR TODAY; TSH IS WNL AND URINE IS UREMARKABLE; TELE AT ALL TIMES; SERIAL EKG TO FOLLOW INDICATED; PHYSICAL DECONDITIONING ; ; PT/OT; AMBULATE TID ; OOB/ IN CHAIR WITH EACH MEAL; MONITOR CLOSELY; CONT PT/OT ETOH ABUSE; CIWA ; CONSIDER ADDING DAILY ETOH BREVARAGE TO REGIMENT WHILE IN HOUSE; WATCH FOR S/S OF WITHDRAWALS; PRN ATIVAN ORDERED ; CONSIDER LIBRIUM INDICATED MACROCYTOSIS WITHOUT ANEMIA; MONITOR ONLY FOR NOW ELEVATED TROP; LIKELY DUE TO CARDIAC STRAIN DUE TO EXCESSIVE HR VS TYPE 1 NSTEMI ; NO ACS SUSPECTED; MONITOR WITH SERIAL LABS ; ON ASA; BETABLOCKER; M.O.N.A. POSS HTN PER HX; METOPROLOL; TREAT INDICATED MEDICAL NON COMPLIANCE; EXTENSIVE COUNSELING GIVEN PT/INR ORDERED FOR THE AM NO GREEN LEAFY VEGETABLE IN DIET WATCH FOR S/S OF BLEEDING WHILE ON ANTICOAGULAT THERAPY DC IF ABLE TO KEEP INR THERAPEUTIC AT GOAL OF 2-3 FOR 24 HRS WHILE OFF HEPARIN Quality VTE Deep Vein Thrombosis/Pulmonary Embolism Present on Admission: No
--- NOTE | 2018-09-30 15:50 | PT.IPTN ---
Physical Therapy Treatment Note M2 PT-IP Current Condition Start: 09/29/18 13:59 Freq: NEEDED Status: Active Protocol: Document 09/29/18 13:10 [facility] (Rec: 09/29/18 14:09 [facility] [id number]) Physical Therapy Current Condition Current Condition Evaluation Date 09/29/18 Treatment Diagnosis back pain, new onset A-fib, impaired activity tolerance Precautions Lumbar Precautions Log Roll No Twisting Limit Bending Lifting Restriction of 10 lbs Weight Bearing Status Weight Bearing Status Weight Bear as Tolerated M3 PT-IP Subjective Start: 09/29/18 13:59 Freq: NEEDED Status: Active Protocol: Document 09/30/18 15:47 [facility] (Rec: 09/30/18 15:49 [facility] [id number]) Subjective Physical Therapy Visit Type Type Patient Refusal Notes Will attempt PT tomorrow if agreeable, but expect pt to be able to d/c home when medically stable. Physical Therapy Visit Comments Patient Comments pt refused to participate in PT today, stating that it has been a busy day, and walked around the room a lot. Goals Bed Mobility Goal Independent Transfer Goal Independent Gait Goal Independent Gait Distance 300 Other Goals STG: Gait x150 ft with no AD and SBA in 1 day. Frequency of Treatment Frequency Of Treatment Once a Day Treatment Plan Physical Therapy Treatment Plan Bed Mobility Training Transfer Training Gait Training Other Recommendations and Next Treatment progress gait without an AD, Focus review log roll Recommendations To Nursing Amount of Assist Needed Standby Assistance Discharge Recommendations PT Discharge Recommendations Home with Assistance
[2018-09-30] MEDS: WARFARIN 2 MG TABLET 4 MG PO (17:41)
[2018-09-30] MEDS: MORPHINE 2 MG/ML INJ IV (20:32)
[2018-10-01 01:00] VITALS: BP 136/76; PULSE 105; RESP 18; TEMP 36.6; O2SAT 96
[2018-10-01] MEDS: HYDROCODONE/ACET 5/325 TABLET 1 TAB PO ×3 (01:00→11:09)
[2018-10-01] MEDS: METOPROLOL TARTRATE 5 MG/5 ML INJ IV (01:07)
[2018-10-01] MEDS: LORazepam 2 MG/ML SYRINGE 1 MG IV (01:10)
[2018-10-01] MEDS: SODIUM CHLORIDE 0.9% FLUSH 10 ML IV ×3 (01:10→09:30)
--- NOTE | 2018-10-01 03:25 | PC.NURSE ---
Up to BR with assist, very short of breath even after 10 minutes to recover HR in 110's. 5mg IV lopressor given with HR dropping to around 100 eventhough still in a-fib. CIWA came up to 6, rather tremulous but oriented, med with 1 mg IV ativan.
--- NOTE | 2018-10-01 04:23 | PC.NURSE ---
Have not notice pt in A-flutter, noticed just A-fib.
[2018-10-01 04:42] VITALS: BP 108/63; PULSE 99; RESP 18; TEMP 37.1; O2SAT 97
[2018-10-01 06:17] LABS: INR 4.1 (0.9-1.3); Prothrombin Time 48.6 SECONDS (10.1-12.7)
--- NOTE | 2018-10-01 07:54 | P.DS_ITS ---
History of Present Illness Chief complaint: PAIN L SIDE BACK PAIN ALL THE WAY ACROSS Narrative: - PATIENT IS A 67 YO MALE WITH A PAST MEDICAL HISTORY SIGNIFICANT FOR ETOH ABUSE AND POSS HTN ; NO PCP; LIVES WITH FAMILY; NON COMPLIANT MEDICALLY - PATIENT IS NOT TAKING ANY RX MEDICATIONS AND QUICK ETOH USE 2 WEEKS AGO - HE PRESENTED TO THE ED WITH COMPLAINT OF BACK PAIN; WEAKNESS AND SOB FOR LAST FEW DAYS - HE STATED THAT HE HAS BEEN FEELING WEAK AND OUT OF BREATH DURING AMBULATION THIS DAYS - HE DOES ADMIT TO A SEDENTARY LIFESTYLE HOWEVER - HE REPORTED SOME LOWER BACK PAIN ASSOCIATED WITH ACTIVITIES WHICH HAS BEEN WORSENING LATELY - HE DENIED ANY PROSTATE ISSUES AND NO HX OF RENAL STONES OR INJURIES IN THE ED, HE WAS FOUND TO HAVE ATRIAL FIB WHICH IS NEW TO ME, GIVEN CARDIZEM AND REFERRED FOR ADMISSION FOR FURTHER MANAGEMENT HIS MOTHER AND BROTHER IN THE ROOM BOTH HAVE AFIB . Discharge Providers Date of admission: 09/28/18 13:16 Consults: 09/28/18 15:43 Consult to Occupational Therapy Evaluate & Treat Comment: Physician Instructions: Evaluate and treat Consult to Physical Therapy Evaluate & Treat Comment: Physician Instructions: Evaluate and Treat 09/28/18 16:08 Consult to Dispute Resolution Specialist Routine Comment: Discharge provider: Shelly Hardy DO Discharge Date: 10/01/18 Summary Discharge Diagnosis: NEW ONSET AFIB; DC ON COUMADIN PHYSICAL DECONDITIONING ; ; PT/OT; AMBULATE TID ; OOB/ IN CHAIR WITH EACH MEAL; MONITOR CLOSELY; CONT PT/OT ETOH ABUSE; OUTPATIENT MANAGEMENT MACROCYTOSIS WITHOUT ANEMIA; MONITOR ONLY FOR NOW; LIKELY RELATED TO ETOH ABUSE ; ELEVATED TROP; LIKELY DUE TO CARDIAC STRAIN DUE TO EXCESSIVE HR VS TYPE 1 OR 2 NSTEMI; NO ACS SUSPECTED; ON ASA; BETA GEE; POSS HTN PER HX; METOPROLOL; TREAT INDICATED POSS CIRRHOSIS OF THE LIVE WITH S/S OF LIVER DYSFCT; OUTPATIENT WORK UP AND MANAGMNT MEDICAL NON COMPLIANCE; EXTENSIVE COUNSELING GIVEN ETOH DEPENDENCY; OUTPATIENT REFERRAL TO [facility] INDICATED Hospital Course: - PATIENT GIVEN HEPARIN AND STARTED ON COUMADIN - HE DID NOT SHOW ANY S/S OF ACUTE COMPLICATIONS SUCH BLEEDING - HE WAS DC TO HOME ONCE HIS INR BECAME THERAPEUTIC - WILL FOLLOW WITH OUTPT PROVIDERS TO MANAGE HIS INR - DC ON METOPROLOL, STATIN AND COUMADIN - HIS TROP WAS MILDLY ELEVATED ; THIS WAS LIKELY DUE TO CARDIAC STRAIN VS POSS TYPE 1 NSTEMI. - A STRESS COULD BE ORDERED OUTPATIENT IF INDICATED PER PRIMARY - ALSO, HE HAS S/S OF ACUTE DYSFCT, HE SHOULD BE REFERRED TO GI FOR CLOSE F/U - LIFESTYLE CHANGES ARE RECOMMENDED WELL; HE NEEDS TO SEE HELP FOR HIS ETOH DEPENDENCY AND ABUSE Status at Discharge Cognitive/behavioral status at discharge: STABLE AND AT BASELINE MENTALLY Functional status at discharge: independent ambulation Overall status at discharge: patient is back to baseline Time Spent with Patient Greater than 30 minutes Exam Vital Signs (past 8 hours): - 10/01/18 01:00 10/01/18 04:42 Temperature 97.8 F 98.8 F Pulse Rate 105 H 99 H Respiratory Rate 18 18 Blood Pressure 136/76 108/63 Pulse Oximetry 96 97 Oxygen Delivery Method Room Air Oxygen Flow Rate 0 Narrative Exam Narrative: NO ACUTE DISTRESS. PATIENT IS ALERT ORIENTED X3. VITAL SIGNS STABLE HEAD ATRAUMATIC NORMOCEPHALIC NECK : SUPPLE WITHOUT ADENOPATHY NO CAROTID BRUITS EYE: EOMI, PERRLA, NORMAL CONJUNCTIVA; NO JAUNDICE CHEST: REGULAR RATE. NO RUBS. PMI IS NON DISPLACED. NO MURMURS; NORMAL S1- S2 PULMONARY: DECREASED BS OVER THE BASES. MILD BIBASILAR CRACKLES NOTED; NO INCREASED DULLNESS TO PERCUSSION ABDOMEN: SOFT. NONTENDER. NONDISTENDED. BOWEL SOUNDS ARE PRESENT IN ALL 4 QUADRANTS. NO MASS. EXTREMITIES: NO EDEMA.. NO CYANOSIS CLUBBING NOTED. NEURO: CRANIAL NERVES 2-12 GROSSLY INTACT. NO FOCAL NEUROLOGICAL DEFICIT NOTED. MSK: NORMAL RANGE OF MOTION FOR AGE. NO JOINT EFFUSION. SKIN: NORMAL FOR ETHNICITY; NO ECCHYMOSIS. NO LESION. GOOD TURGOR.; NO RASHES : NORMAL EXTERNAL GENITALIA. PSYCH : APPROPRIATE MOOD AND AFFECT. ALERT AWAKE ORIENTED X3 Objective Labs Result Diagrams: 09/29/18 05:09 09/29/18 05:09 Labs: Laboratory Results - last 24 hr 10/01/18 05:07 PT 48.6 H D INR 4.1 H Discharge Plan Discharge Plan Patient Disposition: Home Discharge Med Rec/Prescriptions Prescriptions: New aspirin 81 mg Tablet,Delayed Release (Dr/Ec) 81 mg PO DAILY Qty: 60 RF: 0 tramadol 50 mg Tablet 50 mg PO QID PRN (Reason: Pain, Moderate (4-6)) Qty: 60 RF: 0 warfarin [Coumadin] 2 mg Tablet 2 mg PO 1700 Qty: 60 RF: 0 Metoprolol Ir [Lopressor] 12.5 mg PO BID 60 Days RF: 0 methocarbamol [Robaxin-750] 750 mg tablet 750 mg PO QID Qty: 60 RF: 0 gabapentin 300 mg capsule 300 mg PO TID Qty: 90 RF: 0 duloxetine [Cymbalta] 20 mg capsule,delayed release(DR/EC) 20 mg PO DAILY Qty: 60 RF: 0 niacin 500 mg capsule, extended release 500 mg PO BEDTIME Qty: 60 RF: 0 omega-3 fatty acids [Fish Oil Concentrate] 1,000 mg capsule 1,000 mg PO DAILY Qty: 60 RF: 0 atorvastatin [Lipitor] 10 mg tablet 10 mg PO BEDTIME Qty: 60 RF: 0 Provider Discharge Instructions Diet comment: If you eat green leafy vegetables, eat same amt daily (see Warfarin info) Other treatments: Please call and make a follow up with Dr Rosenbaum [phone]. Please ask Dr Rosenbaum's office if they can check your INR this week and if unable too go to walk in clinic by and have INR checked. Visit Report/Discharge Packet Instructions: Back Pain (Alternative Therapy), DI for Low Back Pain, DI for Atrial Fibrillation, Duloxetine, Warfarin, Methocarbamol, Metoprolol, Aspirin, Gabapentin, Tramadol, DI for Warfarin Therapy Visit Report Forms: Stroke Signs & Symptoms Discharge Data Attending Provider: Shelly Hardy Admit Date/Time: 09/28/18 13:16 Quality VTE Deep Vein Thrombosis/Pulmonary Embolism Present on Admission: No
[2018-10-01 08:17] VITALS: BP 139/78; PULSE 110; RESP 18; TEMP 36.6; O2SAT 97
[2018-10-01] MEDS: METOPROLOL IR 12.5 MG TABLET PO (09:30)
[2018-10-01] MEDS: PANTOPRAZOLE 40 MG VIAL IV (09:30)
[2018-10-01] MEDS: ASPIRIN EC 81 MG TABLET PO (09:30)
[2018-10-01] MEDS: ACETAMINOPHEN 325 MG TABLET 650 MG PO (11:09)
--- NOTE | 2018-10-01 14:13 | PT.IPTN ---
Physical Therapy Treatment Note M2 PT-IP Current Condition Start: 09/29/18 13:59 Freq: NEEDED Status: Active Protocol: Document 09/29/18 13:10 RCC (Rec: 09/29/18 14:09 RCC [id number]) Physical Therapy Current Condition Current Condition Evaluation Date 09/29/18 Treatment Diagnosis back pain, new onset A-fib, impaired activity tolerance Precautions Lumbar Precautions Log Roll No Twisting Limit Bending Lifting Restriction of 10 lbs Weight Bearing Status Weight Bearing Status Weight Bear as Tolerated M3 PT-IP Subjective Start: 09/29/18 13:59 Freq: NEEDED Status: Active Protocol: Document 10/01/18 11:13 RS (Rec: 10/01/18 14:13 RS [id number]) Subjective Physical Therapy Visit Type Type Treatment Note Visit Start Time 11:13 Visit Stop Time 11:30 Total Visit Minutes 17 Physical Therapy Visit Comments Patient Comments Pt reports not needing PT but is willing to mobilize in order to go home. M4 PT-IP Mobility and Gait Start: 09/29/18 13:59 Freq: NEEDED Status: Active Protocol: Document 10/01/18 11:13 RS (Rec: 10/01/18 14:13 RS [id number]) PT-Bed Mobility Assessment Supine to Sit Supine to Sit Independent Sit to Supine Sit to Supine Independent Scooting Scooting to Edge of Bed Independent PT-Transfer Assessment Sit to and From Stand Sit to and from Stand Independent Equipment Transfer Assistive Device Gait Belt Transfers Transfer Destination Bed Chair Transfer Technique walked Transfer Ability Level of Assist Independent Gait Assessment Gait Gait Assistance Required: Independent Assistive Devices Assistive Device Gait Belt Gait Deviations General Gait Pattern Antalgic Decreased Feet Clearance Wide Based Gait Factors Limiting Gait Function Factors Limiting Gait Function Decreased Activity Tolerance Pain Comments Gait Comments steady, no LOB. Stair Climbing Assessment Comments Stair Climbing Comments not tested PT-Balance Assessment Sitting Balance and Reactions Static Sitting Balance Ability Good Dynamic Sitting Balance Ability Good Standing Balance and Reactions Static Standing Balance Ability Good Dynamic Standing Balance Ability Good Device Used none M5 PT-IP Objective Assessments Start: 09/29/18 13:59 Freq: NEEDED Status: Active Protocol: Document 09/29/18 13:10 RCC (Rec: 09/29/18 14:09 RCC [id number]) Orientation Orientation/Cognition Level of Alertness Alert Gross Range of Motion Lower Extremity ROM Assessment Within Functional Limits Strength Lower Extremity Strength Assessment Within Functional Limits Hip flexion 4/5 B Knee flexion and extension 5/5 B Ankle DF 5/5 B Coordination Assessment Gross Coordination Gross Coordination WNL Sensation Assessment Sensation Gross Sensation WNL Muscle Tone Muscle Tone WNL Yes M6 PT-IP Treatment Start: 09/29/18 13:59 Freq: NEEDED Status: Active Protocol: Document 09/29/18 13:10 [facility] (Rec: 09/29/18 14:09 RCC [id number]) Physical Therapy Treatment Education Education Provided Precautions Safety M7 PT-IP Assessment and Plan Start: 09/29/18 13:59 Freq: NEEDED Status: Active Protocol: Document 10/01/18 11:13 RS (Rec: 10/01/18 14:13 RS [id number]) PT Summary Assessment and Plan Potential Rehabilitation Potential Good Status of Condition at Evaluation Stable Summary Impairments Pain Gait Activity Tolerance Assessment Summary Pt with reduced activity tolerance but overall safe with household mobility. Pt with normal vitals throughout session. Pt is safe to discharge home when medically ready, Frequency of Treatment Frequency Of Treatment Discharge Recommendations To Nursing Amount of Assist Needed Standby Assistance Discharge Recommendations PT Discharge Recommendations Home with Assistance Home Health
--- NOTE | 2018-10-01 15:49 | CM.DPC ---
DCP: continued: case received, d/c to home order noted and met with pt. He has been up in room and worked with therapy. He will not be homebound. He says his mother is established with [facility] and will try to get him in there for followup while he is staying with them in [place]. Hospitalist gave him a script for OUTPT PT: went home as planned. Stepfather picked him up.
--- NOTE | 2018-10-01 16:05 | PC.NURSE ---
Discharge: Late entry (patient left approx 1400): IV dc'd intact. Tele dc'd. Reviewed all d/c instructions thoroughly, given education info on A-fib, and all new meds. Patient and his stepfather Campos are both aware that he needs to have his INR checked no later than . They think they should be able to do it at [facility] (patient is from out of town but his step-dad and mother both see Dr Rosenbaum). This telegraphic typewriter repairer suggested that they go to the walk-in clinic if it can't be done at [facility]. Instructed them to call the hospital if a referral or order is ordered. Patient and family verbalized understanding of discharge instructions, all questions were answered. Assisted into wheelchair and taken out to private vehicle by nursing staff. All personal belongings set at time of discharge.
== END 2018-10-01 14:00 | disposition home or self-care (01) | DRG 282 ==
LOC: ED 13:12 → AC 13:48
PROVIDERS: Admitting Provider Hospitalist; Emergency Provider Emergency Medicine; Visit Provider Hospitalist
DX: I48.91 Unspecified atrial fibrillation (principal); I21.A1 Myocardial infarction type 2; M54.9 Dorsalgia, unspecified; F10.20 Alcohol dependence, uncomplicated; F17.210 Nicotine dependence, cigarettes, uncomplicated; Z91.19 Patient's noncompliance with other medical treatment and regimen
CPT/HCPCS: 36415; 36591; 72131; 80053; 80061; 81003; 82550; 83690; 83735; 84100; 84443; 84484; 85025; 85610; 93005; 93010; 93306; 94760; 94762; 96361; 96374; 96375; 97161; 97530; 99283; 99285; C9113; J1160; J1650; J1885; J2060; J2270

== ENCOUNTER 2018-10-03 12:03 | Emergency (ER) | payer MEDICARE, SELFPAY ==
[2018-09-28 15:57] VITALS: BMI 27.3
[2018-10-03 12:05] VITALS: BP 131/71; PULSE 120; RESP 28; TEMP 36.4; O2SAT 97
--- NOTE | 2018-10-03 12:29 | DI.RAD.S_ITS ---
PROCEDURE: XR ELBOW RT MIN 3V INDICATIONS: fall pain TECHNIQUE: 3 views of the elbow were acquired. COMPARISON: None. FINDINGS: Bones: No fractures or dislocations. No suspicious bony lesions. Soft tissues: There is subtle elevation of the anterior fat pad raising the suspicion for a joint effusion. IMPRESSION: No acute fracture visualized. Probable small right elbow joint effusion. If there is high clinical suspicion for occult fracture, CT of the elbow may be helpful. Alternatively, consider followup imaging in 5-7 days. Dictated by: Yareli Kent M.D. on 10/03/2018 at 13:06 Approved by: Yareli Kent M.D. on 10/03/2018 at 13:07
--- NOTE | 2018-10-03 12:32 | DI.CT.S_ITS ---
PROCEDURE: CT HEAD/BRAIN WO CON INDICATIONS: fall last night on coumadin TECHNIQUE: Noncontrast 4.5 mm thick angled axial sections acquired from the foramen magnum to the vertex, with coronal and sagittal reformats. For radiation dose reduction, the following was used: automated exposure control, adjustment of mA and/or kV according to patient size. COMPARISON: [facility], CT, HEAD WITHOUT CONTRAST, 06/10/2017, 14:12. FINDINGS: Image quality: Excellent. CSF spaces: Basal cisterns are patent. No extra-axial fluid collections. The ventricles are symmetric in size and shape. Brain: No intracranial bleeds or masses. There is moderate cerebral volume loss for age, with resultant ventricular and sulcal prominence. There are periventricular and deep white matter chronic small vessel ischemic changes. There is intracranial internal carotid artery atherosclerosis. There are bilateral basal ganglia calcifications. Skull and face: Calvarium and visualized facial bones appear intact, without suspicious lesions. Sinuses: Visualized sinuses and mastoids are clear. IMPRESSION: 1. No acute intracranial findings. 2. Findings likely associated with chronic microvascular ischemic changes. Dictated by: Yareli Kent M.D. on 10/03/2018 at 13:00 Approved by: Yareli Kent M.D. on 10/03/2018 at 13:06
--- NOTE | 2018-10-03 13:13 | ED_ITS ---
HPI - Fall General Chief Complaint: Trauma Stated Complaint: fall from stairs last night,lwr back pain Time Seen by Provider: 10/03/18 12:21 Source: patient Mode of arrival: ambulatory Limitations: no limitations History of Present Illness HPI Narrative: Patient is a 67-year-old male who presents after ground level fall last evening. He is supposed to use his pain will walking but he did not he tripped going down the stair. He landed mostly in both of his elbows he does not think that he hit his head although there is a very superficial scratch on his head. He has been acting normally, caregiver brought him to the ED for evaluation. He had no LOC he has C-spine tenderness no neurologic symptoms. He states that he has taken his medications today. MD complaint: fall Related Data Home Medications Medication Instructions Recorded Confirmed metoprolol tartrate 12.5 mg PO BID 10/03/18 10/03/18 Previous Rx's Medication Instructions Recorded aspirin 81 mg PO DAILY #60 tab 10/01/18 atorvastatin [Lipitor] 10 mg PO BEDTIME #60 tab 10/01/18 duloxetine [Cymbalta] 20 mg PO DAILY #60 cap 10/01/18 gabapentin 300 mg PO TID #90 cap 10/01/18 methocarbamol [Robaxin-] 750 mg PO QID #60 tab 10/01/18 niacin 500 mg PO BEDTIME #60 cap 10/01/18 omega-3 fatty acids [Fish Oil 1,000 mg PO DAILY #60 cap 10/01/18 Concentrate] tramadol 50 mg PO QID PRN #60 tab 10/01/18 warfarin [Coumadin] 2 mg PO 1700 #60 tab 10/01/18 Allergies Allergy/AdvReac Type Severity Reaction Status Date / Time No Known Drug Allergies Allergy Verified 09/28/18 11:42 Review of Systems Review of Systems All systems reviewed & are unremarkable except as noted in HPI and below Constitutional Denies chills, Denies fever(s), Denies lethargy and Denies weakness Eyes Denies change in vision, Denies eye discharge, Denies irritation and Denies loss of vision ENT Ears, Nose, Mouth, and Throat: Denies vertigo and Denies dizziness Cardiovascular Reports as per HPI, Denies chest pain, Reports rapid heart rate, Denies irregular heart rhythm, Denies lightheadedness, Denies palpitations and Denies orthopnea Gastrointestinal Gastrointestinal: Denies abdominal pain, Denies change in bowel habits, Denies diarrhea, Denies nausea and Denies vomiting Musculoskeletal Reports as per HPI Integumentary/Breasts Comments: contusion right and left elbow. small superficial abrasion on forehead more like a scratch Neurologic Denies confusion, Denies vertigo, Denies dizziness, Denies loss of vision and Denies weakness Psychiatric Denies confusion Endocrine Denies palpitations Exam Initial Vital Signs Initial Vital Signs: Vital Signs Temperature 97.5 F L 10/03/18 12:05 Pulse Rate 120 H 10/03/18 12:05 Respiratory Rate 28 H 10/03/18 12:05 Blood Pressure 131/71 10/03/18 12:05 Pulse Oximetry 97 10/03/18 12:05 GENERAL: Alert elderly male in no acute distress HEENT: Head superficial scratch on forehead 0.25 cm closed no crepitations no depression,EOMI, pupils reactive, CARDIOVASCULAR: Irregularly irregular no murmur RESPIRATORY: Breath sounds equal bilaterally, no wheezes rales or rhonchi. ABDOMEN: Soft, nontender. Normoactive bowel sounds all 4 quadrants. No guarding or rebound. EXTREMITIES: Normal range of motion, no clubbing or edema. Neurovascularly intact. Contusion and abrasion noted on the left elbow and left forearm bandage is covered. No erythema. Right elbow contusion able to flex and extend right elbow neurovascularly in past. Left shoulder also looks slightly abnormal but he is able to move both arms shoulder is nontender left clavicle has no step-off NEUROLOGICAL: Alert and oriented x4.Normal gait and speech. Cranial nerves II through XII grossly intact. [Good [id number], good [id number], strength equal bilaterally, no dysarthria or aphasia, sensation in tact to soft touch bilaterally, no visual changes, no facial droop] SKIN: Warm, dry, no laceration, no petechiae, no rashes or lesions. As described above [facility] Medical History Atrial fibrillation (Acute) ETOH abuse (Acute) Family History Father Heart disease Mental health problem Mother Age: 88 Cancer Heart disease Hypertension Sister Heart disease Mental health problem Pacemaker Social History household members: none Smoking Status: Former smoker alcohol intake: former Course Orders Ordered: ED Orders 10/03/18 12:29 XR elbow RT min 3V Stat 10/03/18 12:32 CT head/brain wo con Stat Vital Signs - 8 hr 10/03/18 12:05 10/03/18 13:17 10/03/18 13:22 Temperature 97.5 F L Pulse Rate 120 H 112 H 93 H Respiratory Rate 28 H 18 25 H Blood Pressure 131/71 Blood Pressure [Left Arm] 121/76 Pulse Oximetry 97 98 MDM - Fall Imaging Data CT scan - head: Radiologist's impression: PROCEDURE: CT HEAD/BRAIN WO CON INDICATIONS: fall last night on coumadin TECHNIQUE: Noncontrast 4.5 mm thick angled axial sections acquired from the foramen magnum to the vertex, with coronal and sagittal reformats. For radiation dose reduction, the following was used: automated exposure control, adjustment of mA and/or kV according to patient size. COMPARISON: [facility], CT, HEAD WITHOUT CONTRAST, 06/10/2017, 14:12. FINDINGS: Image quality: Excellent. CSF spaces: Basal cisterns are patent. No extra-axial fluid collections. The ventricles are symmetric in size and shape. Brain: No intracranial bleeds or masses. There is moderate cerebral volume loss for age, with resultant ventricular and sulcal prominence. There are periventricular and deep white matter chronic small vessel ischemic changes. There is intracranial internal carotid artery atherosclerosis. There are bilateral basal ganglia calcifications. Skull and face: Calvarium and visualized facial bones appear intact, without suspicious lesions. Sinuses: Visualized sinuses and mastoids are clear. IMPRESSION: 1. No acute intracranial findings. 2. Findings likely associated with chronic microvascular ischemic changes. Dictated by: Yareli Kent M.D. on 10/03/2018 at 13:00 Elbow X-ray Right: Radiologist's impression: PROCEDURE: XR ELBOW RT MIN 3V INDICATIONS: fall pain TECHNIQUE: 3 views of the elbow were acquired. COMPARISON: None. FINDINGS: Bones: No fractures or dislocations. No suspicious bony lesions. Soft tissues: There is subtle elevation of the anterior fat pad raising the suspicion for a joint effusion. IMPRESSION: No acute fracture visualized. Probable small right elbow joint effusion. If there is high clinical suspicion for occult fracture, CT of the elbow may be helpful. Alternatively, consider followup imaging in 5-7 days. Dictated by: Yareli Kent M.D. on 10/03/2018 at 13:[address] [facility] Narrative Medical decision making narrative: Patient's heart rate is quite irregular he is in AFib. It at times numbness to 150 but does not stay there quickly returns back to 90. At this time I think he can return home and take his AFib medication. No neurologic findings. Head CT and right elbow x-ray are negative. I discussed with him that he needs to use his cane while walking especially while and now on Coumadin. He was discharged 2 days ago INR 2 days ago was 4.1 Discharge Plan Departure Patient Disposition: Home Clinical Impression: Contusion of elbow, right, Closed head injury Discharge Date/Time: 10/03/18 13:45 Interventions: ED Discharge Assessment Last Done: 10/03/18 13:44 Instructions: DI for Contusion Activity Restrictions/Additional Instructions: *You have been diagnosed with the right elbow contusion, closed head injury *What to do: USE YOU'RE CANE WELL WALKING SO THAT YOU DO NOT FALL *Continue to take medications as directed -be sure to take your atrial fibrillation medication. *Follow up with your primary care provider in 2-3 days *Return to ER if you should have mode recurrent falls, heart palpitations, chest pain, dizziness lightheadedness any new, worsening or concerning symptoms Prescriptions: No Action metoprolol tartrate 25 mg Tablet 12.5 mg PO BID RF: 0 aspirin 81 mg Tablet,Delayed Release (Dr/Ec) 81 mg PO DAILY Qty: 60 RF: 0 tramadol 50 mg Tablet 50 mg PO QID PRN (Reason: Pain, Moderate (4-6)) Qty: 60 RF: 0 warfarin [Coumadin] 2 mg Tablet 2 mg PO 1700 Qty: 60 RF: 0 methocarbamol [Robaxin-750] 750 mg tablet 750 mg PO QID Qty: 60 RF: 0 gabapentin 300 mg capsule 300 mg PO TID Qty: 90 RF: 0 duloxetine [Cymbalta] 20 mg capsule,delayed release(DR/EC) 20 mg PO DAILY Qty: 60 RF: 0 niacin 500 mg capsule, extended release 500 mg PO BEDTIME Qty: 60 RF: 0 omega-3 fatty acids [Fish Oil Concentrate] 1,000 mg capsule 1,000 mg PO DAILY Qty: 60 RF: 0 atorvastatin [Lipitor] 10 mg tablet 10 mg PO BEDTIME Qty: 60 RF: 0 Referrals: Barrera Rosenbaum MD [Physician] -
[2018-10-03 13:17] VITALS: PULSE 112; RESP 18; O2SAT 98
[2018-10-03 13:22] VITALS: BP 121/76; PULSE 93; RESP 25
== END 2018-10-03 13:45 | disposition home or self-care (01) ==
PROVIDERS: Emergency Provider Emergency Medicine
DX: S09.90XA Unspecified injury of head, initial encounter (principal); S50.01XA Contusion of right elbow, initial encounter; W10.8XXA Fall (on) (from) other stairs and steps, initial encounter
CPT/HCPCS: 70450; 73080; 93005; 93010; 93041; 99283; 99284

== ENCOUNTER 2018-10-12 13:38 | Inpatient (IN) | payer MEDICARE, SELFPAY ==
[2018-09-28 15:57] VITALS: BMI 27.3
[2018-10-12] VITALS (27 sets, daily range): BP systolic 102–147; BP diastolic 8–115; PULSE 85–177; RESP 18–29; TEMP 36.3–36.7; O2SAT 94–97; BMI 29.8
--- NOTE | 2018-10-12 | DI.RAD.S_ITS ---
PROCEDURE: XR KNEE RT 1TO2V INDICATIONS: KNEE PAIN AFTER FALL TECHNIQUE: 2 views of the knee were acquired. COMPARISON: None. FINDINGS: Bones: No displaced fracture or dislocation is identified involving the osseous structures of the right knee. There may be early degenerative changes of the knee. No suspicious osseous lesions are evident. Soft tissues: There appears to be a joint effusion. No suspicious soft tissue calcifications. Scattered vascular calcifications are noted. IMPRESSION: 1. No displaced fractures of the knee. 2. Small knee joint effusion. Dictated by: Manuel Hernandes M.D. on 10/12/2018 at 13:47 Approved by: Manuel Hernandes M.D. on 10/12/2018 at 13:47
--- NOTE | 2018-10-12 14:11 | DI.RAD.S_ITS ---
PROCEDURE: XR CHEST 1V INDICATIONS: chest pain TECHNIQUE: One view of the chest was acquired. COMPARISON: None. FINDINGS: This Surgical changes and devices: None. Lungs and pleura: No pleural effusions or pneumothorax. No acute consolidation. Scattered subsegmental atelectasis and/or scarring. Mediastinum: Mediastinal contours appear normal. Heart size is normal. Bones and chest wall: No suspicious bony lesions. Overlying soft tissues appear unremarkable. IMPRESSION: No acute disease Dictated by: Tian Rivas M.D. on 10/12/2018 at 14:37 Approved by: Tian Rivas M.D. on 10/12/2018 at 14:40
[2018-10-12 14:26] LABS: Add Manual Diff / Slide Review NO; Basophils Percent Auto 0.4 % (0-2); Eosinophils Percent Auto 0.6 % (2-4); Hematocrit 39.6 % (41-53); Hemoglobin 13.7 g/dL (13.5-17.5); Lymphocytes Percent Auto 14.1 % (25-40); Mean Corpuscular HGB Conc 34.6 % (30-36); Mean Corpuscular Hemoglobin 33.6 PG (26-34); Monocytes Percent Auto 11.9 % (3-14); Neutrophils Absolute Auto 4800 /uL (1500-7000); Platelet Count 156 X10^3/uL (150-400); Red Blood Cell Count 4.08 X10^6/uL (4.5-5.9); Red Cell Distribution Width 13.4 % (11.6-14.8); White Blood Cell Count 6.5 X10^3/uL (4.5-11.0)
--- NOTE | 2018-10-12 14:26 | PC.NURSE ---
Pt brought to ED by brother in law (currently staying w/ Sister and Brother in law. Had fall a week ago and was seen in ED and cleared. Has had one month h/o afib w/ rvr, rate difficult to control. Has had no luck in gaining PCP. Denies chest pain and shortness of breath however pt is noted to be tachypneac w/ RR 20-28. Brother in law states that he has been compliant on medications. Pt himself is poor historian.
--- NOTE | 2018-10-12 14:32 | ED_ITS ---
HPI - Arrhythmia/Palpitations General Chief Complaint: Extremity Injury, Lower Stated Complaint: Right Knee Pain/Swelling from fall Time Seen by Provider: 10/12/18 14:14 Source: patient and family (darion) History of Present Illness HPI narrative: This is a 67-year-old male who comes to the emergency department with complaint of right knee pain. Patient was here a couple weeks ago after a fall where he had head injury had a head CT which was negative but at that time was diagnosed with new atrial fibrillation. Per patient and family he was admitted Um on a diltiazem drip, was discharged and then returned later for back pain and was found to have atrial fibrillation again. Today he comes in with complaint of his knee pain from his original fall he denies any recent falls. He is living with his step father and mother and they state he has not had any new injuries that they are aware of. Patient is denying any chest pain , no shortness of breath that is new or worse but according to his step father does have some trouble. Denies any nausea no vomiting no diarrhea constipation no urinary symptoms. He has had some mild swelling his lower extremities. He denies any new neck or back pain. He has been taking tramadol for pain which seems to be controlling his back pain. He is taking warfarin which was started 3 weeks ago on the atrial fibrillation as well as aspirin 81 mg and metoprolol 12.5 mg b.i.d.. He does not a primary care physician yet he just moved to the area September 17. 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 Patient also was on medications for high blood sugar at some point but stopped them. Related Data Home Medications Medication Instructions Recorded Confirmed metoprolol tartrate 12.5 mg PO BID 10/03/18 10/12/18 Previous Rx's Medication Instructions Recorded aspirin 81 mg PO DAILY #60 tab 10/01/18 atorvastatin [Lipitor] 10 mg PO BEDTIME #60 tab 10/01/18 duloxetine [Cymbalta] 20 mg PO DAILY #60 cap 10/01/18 gabapentin 300 mg PO TID #90 cap 10/01/18 methocarbamol [Robaxin-] 750 mg PO QID #60 tab 10/01/18 niacin 500 mg PO BEDTIME #60 cap 10/01/18 omega-3 fatty acids [Fish Oil 1,000 mg PO DAILY #60 cap 10/01/18 Concentrate] tramadol 50 mg PO QID PRN #60 tab 10/01/18 warfarin [Coumadin] 2 mg PO 1700 #60 tab 10/01/18 Allergies Allergy/AdvReac Type Severity Reaction Status Date / Time No Known Drug Allergies Allergy Verified 09/28/18 11:42 Review of Systems Review of Systems All systems reviewed & are unremarkable except as noted in HPI and below ENT Ears, Nose, Mouth, and Throat: Denies neck pain Cardiovascular Denies chest pain, Denies diaphoresis, Denies syncope, Denies rapid heart rate, Denies edema, Denies irregular heart rhythm, Denies leg edema, Denies lightheadedness, Denies palpitations, Denies dyspnea, Reports dyspnea on exertion (not worse) and Denies orthopnea Respiratory Denies change in phlegm color, Denies chest congestion, Denies cough, Denies dyspnea and Reports dyspnea on exertion (not worse) Gastrointestinal Gastrointestinal: Denies abdominal pain, Denies change in bowel habits, Denies diarrhea, Denies nausea and Denies vomiting Musculoskeletal Reports back pain (improved), Reports arthralgias (right knee pain), Reports joint swelling (knee), Denies limited range of motion (pain with ambulation, weight bearing) and Denies neck pain Integumentary/Breasts Denies rash and Denies unusual bruising Neurologic Denies syncope Endocrine Denies palpitations [facility] Medical History Atrial fibrillation (Acute) ETOH abuse (Acute) Social History household members: none Smoking Status: Former smoker alcohol intake: former Exam Narrative Exam Narrative: GENERAL: Alert and oriented x three, patient is in no acute distress. HEENT: Head normocephalic, atraumatic, EOMI, pupils reactive, face symmetric, moist mucous membranes NECK: Supple, full range of motion CARDIOVASCULAR: Irregularly irregular and tachycardic rhythm without murmurs, rubs or gallops. RESPIRATORY: Breath sounds equal bilaterally, no wheezes rales or rhonchi. No tachypnea or accessory muscle use. ABDOMEN: Soft, nontender. Normoactive bowel sounds all 4 quadrants. No guarding or rebound, rigidity, no mass : No CVA tenderness EXTREMITIES: Normal range of motion, no clubbing or edema. Neurovascularly intact NEUROLOGICAL: Cranial nerves II through XII grossly intact. Moving all extremities SKIN: Warm, dry, no petechiae, no rashes or lesions. Initial Vital Signs Initial Vital Signs: Vital Signs Temperature 97.3 F L 10/12/18 13:50 Pulse Rate 132 H 10/12/18 13:50 Respiratory Rate 20 10/12/18 13:50 Blood Pressure 141/100 H 10/12/18 13:50 Pulse Oximetry 95 10/12/18 13:50 Course Orders Ordered: ED Orders 10/12/18 14:06 EKG-12 Lead Stat 10/12/18 14:11 XR chest 1V Stat 10/12/18 14:15 B Type Natriuretic Peptide Stat Complete Blood Count AUTO DIFF Stat Comprehensive Metabolic Panel Stat Lipase Stat Partial Thromboplastin Time Stat Prothrombin Time INR Stat Troponin & CK Cardiac Panel Stat Diltiazem HCl 125 mg/ Dextrose 125 mls @ 5 mls/hr IV TITRATE ACOSTA; Protocol Last Titration: 10/12/18 18:20 Dose: 5 mg/hr, 5 mls/hr Titration: 10/12/18 17:38 Dose: 0 mg/hr, 0 mls/hr Admin: 10/12/18 16:26 Dose: 5 mg/hr, 5 mls/hr Discontinued Medications Diltiazem HCl (Cardizem) 20 mg IV NOW ONE Stop: 10/12/18 14:34 Last Admin: 10/12/18 14:40 Dose: 20 mg Furosemide (Lasix) 40 mg IV NOW ONE Stop: 10/12/18 15:22 Last Admin: 10/12/18 15:36 Dose: 40 mg Metoprolol Tartrate (Lopressor) 5 mg IV NOW ONE Stop: 10/12/18 17:33 Last Admin: 10/12/18 17:40 Dose: 5 mg Potassium Chloride (Potassium Chloride) 40 meq PO NOW ONE Stop: 10/12/18 15:18 Last Admin: 10/12/18 15:35 Dose: 40 meq Vital Signs - 8 hr 10/12/18 13:50 10/12/18 14:10 10/12/18 14:40 Temperature 97.3 F L Pulse Rate 132 H 154 H 145 H Pulse Rate [Bilateral Dorsalis Pedis] 140 H Respiratory Rate 20 28 H Blood Pressure 141/100 H 135/94 H Blood Pressure [Right Arm] 123/92 H Pulse Oximetry 95 96 10/12/18 14:53 10/12/18 15:20 10/12/18 16:29 Temperature Pulse Rate 89 85 155 H Pulse Rate [Bilateral Dorsalis Pedis] Respiratory Rate 20 19 25 H Blood Pressure Blood Pressure [Right Arm] 117/70 126/93 H 140/115 H Pulse Oximetry 95 96 97 10/12/18 17:17 10/12/18 17:35 10/12/18 18:16 Temperature Pulse Rate 139 H 177 H 149 H Pulse Rate [Bilateral Dorsalis Pedis] Respiratory Rate 22 22 18 Blood Pressure Blood Pressure [Right Arm] 118/92 H 118/92 H 128/72 Pulse Oximetry 96 95 10/12/18 18:28 Temperature Pulse Rate 159 H Pulse Rate [Bilateral Dorsalis Pedis] Respiratory Rate 18 Blood Pressure 128/72 Blood Pressure [Right Arm] Pulse Oximetry 94 MDM - Arrhythmia/Palpitations Lab Data Attestation: I reviewed the patient's lab results. Result diagrams: 10/12/18 14:15 10/12/18 14:15 Lab Results 10/12/18 10/12/18 10/12/18 Range/Units 14:15 14:15 14:15 WBC 6.5 (4.5-11.0) X10^3/uL RBC 4.08 L (4.5-5.9) X10^6/uL Hgb 13.7 (13.5-17.5) g/dL Hct 39.6 L (41-53) % MCV 97.0 (80-100) fL MCH 33.6 (26-34) PG MCHC 34.6 (30-36) % RDW 13.4 (11.6-14.8) % Plt Count 156 (150-400) X10^3/uL Neut % (Auto) 73.0 (50-75) % Lymph % (Auto) 14.1 L (25-40) % Nelson % (Auto) 11.9 (3-14) % Eos % (Auto) 0.6 L (2-4) % Baso % (Auto) 0.4 (0-2) % Neut # (Auto) 4800 (5180-6154) /uL PT 24.0 H (10.1-12.7) SECONDS INR 2.0 H (0.9-1.3) APTT 34 (26.4-36.2) SECONDS Sodium 140 (137-145) mmol/L Potassium 3.1 L (3.4-5.1) mmol/L Chloride 101 (98-107) mmol/L Carbon Dioxide 26 (22-32) mmol/L BUN 12 (9-20) mg/dL Creatinine 0.80 (0.66-1.25) mg/dL Estimated GFR > 60.0 (>60) mL/min BUN/Creatinine Ratio 15.0 (6-22) Glucose 101 (80-110) mg/dL Calcium 8.9 (8.4-10.2) mg/dL Total Bilirubin 1.6 H (0.2-1.3) mg/dL AST 154 H (17-59) IU/L ALT 89 H (21-72) IU/L Alkaline Phosphatase 88 (38-126) U/L Total Creatine Kinase 63 (55-170) U/L CK-MB (CK-2) TNP CK-MB (CK-2) Rel Index TNP Troponin I 0.022 (0.01-0.034) ng/mL B-Natriuretic Peptide (<100) Total Protein 7.1 (6.3-8.2) g/dL Albumin 3.8 (3.5-5.0) g/dL Globulin 3.3 (1.7-4.1) g/dL Albumin/Globulin Ratio 1.2 (1.0-2.8) Lipase 35 (23-300) U/L // Range/Units 14:15 WBC (4.5-11.0) X10^3/uL RBC (4.5-5.9) X10^6/uL Hgb (13.5-17.5) g/dL Hct (41-53) % MCV (80-100) fL MCH (26-34) PG MCHC (30-36) % RDW (11.6-14.8) % Plt Count (150-400) X10^3/uL Neut % (Auto) (50-75) % Lymph % (Auto) (25-40) % Nelson % (Auto) (3-14) % Eos % (Auto) (2-4) % Baso % (Auto) (0-2) % Neut # (Auto) (3727-2335) /uL PT (10.1-12.7) SECONDS INR (0.9-1.3) APTT (26.4-36.2) SECONDS Sodium (137-145) mmol/L Potassium (3.4-5.1) mmol/L Chloride (98-107) mmol/L Carbon Dioxide (22-32) mmol/L BUN (9-20) mg/dL Creatinine (0.66-1.25) mg/dL Estimated GFR (>60) mL/min BUN/Creatinine Ratio (6-22) Glucose (80-110) mg/dL Calcium (8.4-10.2) mg/dL Total Bilirubin (0.2-1.3) mg/dL AST (17-59) IU/L ALT (21-72) IU/L Alkaline Phosphatase (38-126) U/L Total Creatine Kinase (55-170) U/L CK-MB (CK-2) CK-MB (CK-2) Rel Index Troponin I (0.01-0.034) ng/mL B-Natriuretic Peptide 874 H (<100) Total Protein (6.3-8.2) g/dL Albumin (3.5-5.0) g/dL Globulin (1.7-4.1) g/dL Albumin/Globulin Ratio (1.0-2.8) Lipase (23-300) U/L Imaging Data Chest x-ray: Radiologist's impression: [address] [address] XRay Report Signed Patient: Raymundo Dominguez MR#: [id number] : 1950 Acct:[id number] Age/Sex: 67 / M Date of Service: 10/12/18 Loc: ED Accession Number: [id number] Procedure: XR chest 1V Ordering Provider: Breanne Mattson D.O. PROCEDURE: XR CHEST 1V INDICATIONS: chest pain TECHNIQUE: One view of the chest was acquired. COMPARISON: None. FINDINGS: This Surgical changes and devices: None. Lungs and pleura: No pleural effusions or pneumothorax. No acute consolidation. Scattered subsegmental atelectasis and/or scarring. Mediastinum: Mediastinal contours appear normal. Heart size is normal. Bones and chest wall: No suspicious bony lesions. Overlying soft tissues appear unremarkable. IMPRESSION: No acute disease Dictated by: Tian Rivas M.D. on 10/12/2018 at 14:37 Approved by: Tian Rivas M.D. on 10/12/2018 at 14:40 knee: Radiologist's impression: [address] [address] XRay Report Signed Patient: Raymundo Dominguez MR#: [id number] : 1950 Acct:[id number] Age/Sex: 67 / M Date of Service: 10/12/18 Loc: ED Accession Number: [id number] Procedure: XR knee RT 1to2V Ordering Provider: Breanne Mattson D.O. PROCEDURE: XR KNEE RT 1TO2V INDICATIONS: KNEE PAIN AFTER FALL TECHNIQUE: 2 views of the knee were acquired. COMPARISON: None. FINDINGS: Bones: No displaced fracture or dislocation is identified involving the osseous structures of the right knee. There may be early degenerative changes of the knee. No suspicious osseous lesions are evident. Soft tissues: There appears to be a joint effusion. No suspicious soft tissue calcifications. Scattered vascular calcifications are noted. IMPRESSION: 1. No displaced fractures of the knee. 2. Small knee joint effusion. Dictated by: Manuel Hernandes M.D. on 10/12/2018 at 13:47 Approved by: Mnauel Hernandes M.D. on 10/12/2018 at 13:47 ECG Data Attestation: I personally reviewed and interpreted this ECG as follows: Prior ECG tracings: available for review Interpretation: Rate of 161 with atrial fibrillation with rapid ventricular response and a QRS of 110 with a QTC of 371. Patient has in T-wave abnormalities in V4 through V6. No ST elevation. Some inversion/depression in 1 aVL. EKG appears similar to prior from 10/03/2018. MDM Narrative Medical decision making narrative: Patient is asymptomatic other than maybe some shortness of breath although he claims it is not any worse. Potassium is slightly low, he responded to diltiazem 20 mg IV. He has been taking his metoprolol under the watch the eye of his stepfather. He has been taking 12.5 mg b.i.d. While here patient received Cardizem 20 mg patient improved into the 80s and 90s for about 20 min but then his heart rate jumped back up to the 140s to 160s range. Patient was started on a drip spoke with Dr. Jaimes from the hospitalist service who accepts. She did come down ask if we can try a dose of metoprolol IV and stop the Cardizem drip so the patient could possibly be managed on the floor with pushes. We did attempt this but patient has heart rate continue to jump up shortly afterwards the patient was restarted on a drip and transferred to the ICU Discharge Plan Departure Patient Disposition: Admitted As Inpatient Clinical Impression: Atrial fibrillation, Right knee pain Discharge Date/Time: 10/12/18 18:28 Interventions: ED Discharge Assessment Last Done: 10/12/18 18:28 Admit Date/Time: 10/12/18 17:07 Admit Provider: Gisella Jaimes
[2018-10-12 14:35] LABS: PTT Partial Thromboplastin Tim 34 SECONDS (26.4-36.2)
[2018-10-12 14:39] LABS: Alanine Aminotransferase 89 IU/L (21-72); Albumin 3.8 g/dL (3.5-5.0); Albumin Globulin Ratio 1.2 (1.0-2.8); Alkaline Phosphatase 88 U/L (38-126); Aspartate Aminotransferase 154 IU/L (17-59); Bilirubin Total 1.6 mg/dL (0.2-1.3); Blood Urea Nitrogen 12 mg/dL (9-20); Calcium 8.9 mg/dL (8.4-10.2); Carbon Dioxide 26 mmol/L (22-32); Chloride 101 mmol/L (98-107); Creatine Kinase 63 U/L (55-170); Estimated Glomerular Filt Rate > 60.0 mL/min (>60); Globulin 3.3 g/dL (1.7-4.1); Glucose 101 mg/dL (80-110); HEMOLYSIS < 15 (0-50); Lipase 35 U/L (23-300); Potassium 3.1 mmol/L (3.4-5.1); Sodium 140 mmol/L (137-145); Total Protein 7.1 g/dL (6.3-8.2)
[2018-10-12] MEDS: dilTIAZem 5 MG/ML SDV 20 MG IV (14:40)
[2018-10-12 14:49] LABS: Troponin I 0.022 ng/mL (0.01-0.034)
[2018-10-12 15:08] LABS: B Type Natriuretic Peptide 874 (<100)
[2018-10-12] MEDS: POTASSIUM CHLORIDE 20 MEQ/15 ML UDC 40 MEQ PO (15:35)
[2018-10-12] MEDS: FUROSEMIDE 40 MG/4 ML VIAL IV (15:36)
[2018-10-12] MEDS: dilTIAZem 125 MG in DEXTROSE 5 % IN WATER 100 ML IV (16:26)
[2018-10-12] MEDS: METOPROLOL TARTRATE 5 MG/5 ML INJ IV (17:40)
--- NOTE | 2018-10-12 20:04 | P.HP_ITS ---
History of Present Illness Date Patient Seen: 10/12/18 Time Patient Seen: 19:00 Chief complaint: Right Knee Pain/Swelling from fall Narrative: This is a 67-year-old male patient who is admitted from the ER with atrial fibrillation with rapid ventricular response. His presenting complaint was of right knee pain with history of a fall 3 weeks ago with persistent pain since on the anterolateral aspect with joint swelling impaired mobility walking with a walker. Upon evaluation the patient was found to be in atrial fibrillation without complaints of chest pain or shortness of breath but had shortness of breath for the previous 2 days. The patient has been on treatment for atrial fibrillation with metoprolol 12.5 mg b.i.d. warfarin. His previously undergone ablation which has been ineffective in controlling the recipient He provides no history of prior underlying pulmonary disease. The patient has been started on diltiazem drip to be titrated with [place] heart rate is variable from the 110s to 130s. On September 19 patient has relocated to [place] from the [facility] to live with his mother and stepfather. Patient additionally has a history of ETOH abuse consuming approximately a 12 pack of beer daily. Since moving in with his family he has been abstinent per report of Campos, his stepfather who is at bedside during patient evaluation. Family reports no withdrawal symptoms. The patient has been compliant with medications and has no local primary care provider. The patient denies other complaints of pain or problems with no dizziness or headaches has no shortness of breath or cough. Chest x-ray is negative for infiltrates or consolidation. He denies abdominal pain, nausea vomiting, constipation diarrhea he is presently minimally ambulatory using a walker. Has persistent right knee pain with decreased range of motion and pain on weight- bearing. Prior x-ray has been negative. Patient History Medical History Elevated LFTs (Acute) Atrial fibrillation (Acute) ETOH abuse (Acute) Surgical History S/P ablation of atrial fibrillation (Acute) Family & Social History Social History: household members family Prior Living Arrangements House Safety & Behavioral: Feels Safe in Current Yes Environment Been Physically Hurt or No Threatened By a Person Suicidal Ideation Description None Suicide Plan Description No Plan Tobacco & Substance use: Tobacco type cigarettes Smoking Status Former smoker alcohol intake former alcohol intake frequency other Substance Use Type does not use Meds Home Medications Medication Instructions Recorded Confirmed Type aspirin 81 mg PO DAILY #60 tab 10/01/18 10/12/18 Rx atorvastatin [Lipitor] 10 mg PO BEDTIME #60 tab 10/01/18 10/12/18 Rx duloxetine [Cymbalta] 20 mg PO DAILY #60 cap 10/01/18 10/12/18 Rx gabapentin 300 mg PO TID #90 cap 10/01/18 10/12/18 Rx methocarbamol [Robaxin-] 750 mg PO QID #60 tab 10/01/18 10/12/18 Rx niacin 500 mg PO BEDTIME #60 cap 10/01/18 10/12/18 Rx omega-3 fatty acids [Fish Oil 1,000 mg PO DAILY #60 cap 10/01/18 10/12/18 Rx Concentrate] tramadol 50 mg PO QID PRN #60 tab 10/01/18 10/12/18 Rx warfarin [Coumadin] 2 mg PO 1700 #60 tab 10/01/18 10/12/18 Rx metoprolol tartrate 12.5 mg PO BID 10/03/18 10/12/18 History Allergies Allergy/AdvReac Type Severity Reaction Status Date / Time No Known Drug Allergies Allergy Verified 09/28/18 11:42 Review of Systems Constitutional Constitutional: Reports system reviewed and no additional complaints, except as documented, Denies chills, Denies excessive sweating, Denies fatigue, Denies fever(s), Denies headache(s), Denies malaise and Denies night sweats Eyes Eyes: Denies change in vision, Denies double vision, Denies discharge, Denies floaters and Denies other visual disturbances ENT Ears, Nose, Mouth, and Throat: No abnormal hearing, No difficulty swallowing, No dizziness, No headache(s), No nose bleed, No nasal discharge, Yes poor balance (related to knee injury), No throat swelling and No tongue swelling Cardiovascular Cardiovascular: Reports as per HPI, Denies chest pain, Denies chest pain at rest , Denies excessive sweating, Reports fast heart rate, Reports foot swelling (1+) , Denies lightheadedness, Denies shortness of breath, Denies shortness of breath with activity and Denies shortness of breath when lying down Respiratory Respiratory: Denies chest congestion, Denies cough, Denies dyspnea, Denies dyspnea on exertion and Denies wheezing Gastrointestinal Gastrointestinal: Denies change in bowel habits (Daily BM without evidence of blood) and Denies dysphagia Genitourinary Genitourinary: Denies hematuria, Denies difficulty urinating and Reports nocturia (2 times nightly) Musculoskeletal Musculoskeletal: Reports abnormal gait (related to right knee pain), Denies back pain, Reports joint swelling (right knee) and Reports stiffness (right knee ) Integumentary/Breasts Skin/Breast: Denies rash, Denies skin pain and Reports wounds (healing wound left forearm) Neurologic Neurologic: Denies abnormal hearing, Denies abnormal movements (no tremors), Reports abnormal gait (related to right knee pain), Denies confusion, Denies dizziness, Denies headache(s) and Reports disequilibrium (related to knee injury ) Psychiatric Psychiatric: Denies confusion, Denies depression, Denies difficulty concentrating, Denies auditory hallucinations, Denies panic attacks, Denies paranoia, Denies hallucinations and Reports homicidal ideation Endocrine Endocrine: Denies cold intolerance, Denies excessive sweating, Denies fatigue, Denies heat intolerance and Denies polydipsia Hematologic/Lymphatic Hematologic/Lymphatic: Denies easy bleeding, Denies easy bruising and Denies lymphadenopathy Allergic/Immunologic Allergic/Immunologic: Denies urticaria, Denies throat swelling, Denies tongue swelling and Denies wheezing Exam Vital Signs (past 8 hours): - 10/12/18 13:50 10/12/18 14:10 10/12/18 14:40 Temperature 97.3 F L Pulse Rate 132 H 154 H 145 H Pulse Rate [Bilateral Dorsalis Pedis] 140 H Respiratory Rate 20 28 H Blood Pressure 141/100 H 135/94 H Blood Pressure [Right Arm] 123/92 H Pulse Oximetry 95 96 10/12/18 14:53 10/12/18 15:20 10/12/18 16:29 Temperature Pulse Rate 89 85 155 H Pulse Rate [Bilateral Dorsalis Pedis] Respiratory Rate 20 19 25 H Blood Pressure Blood Pressure [Right Arm] 117/70 126/93 H 140/115 H Pulse Oximetry 95 96 97 10/12/18 17:17 10/12/18 17:35 10/12/18 18:16 Temperature Pulse Rate 139 H 177 H 149 H Pulse Rate [Bilateral Dorsalis Pedis] Respiratory Rate 22 22 18 Blood Pressure Blood Pressure [Right Arm] 118/92 H 118/92 H 128/72 Pulse Oximetry 96 95 10/12/18 18:28 10/12/18 18:56 Temperature 97.6 F Pulse Rate 159 H 134 H Pulse Rate [Bilateral Dorsalis Pedis] Respiratory Rate 18 29 H Blood Pressure 128/72 137/89 Blood Pressure [Right Arm] Pulse Oximetry 94 97 Oxygen Delivery Method Room Air Const General: cooperative, well developed and No acute distress Nutritional Appearance: obese (abdominal obesity) Orientation: alert, awake and oriented x3 Limitations: mental status not altered and no behavioral limitations [facility] Head: normocephalic and atraumatic Ears: hearing grossly normal bilaterally Nose: external nose normal and No nasal discharge Face and sinus: normal facial exam and sinuses tender Mouth: oral mucosae normal, tongue normal and mucous membranes abnormal Throat: posterior oropharynx normal and uvula midline Eyes Alignment and Position: alignment normal Eyelids: eyelids normal Conjunctivae: conjunctivae normal Sclera: sclerae normal Pupils: PERRL and accommodation normal EOM: EOM intact bilaterally and No nystagmus Neck Neck: normal visual inspection, trachea midline and No JVD Thyroid: thyroid normal Carotids: normal carotid upstroke Lymphatic: No lymphadenopathy Chest Chest: normal inspection of the chest and normal palpation of entire chest wall Resp Effort & Inspection: normal respiratory effort, able to speak in complete sentences, no cough, no grunting, not labored and no respiratory distress Auscultation: clear to auscultation bilaterally, no crackles, no rhonchi and no wheezes Cardio Rate: tachycardic Heart Sounds: S1 normal, S2 normal, no gallops, no murmurs and no rubs Bruits: no carotid bruits Pulses: radial pulses present and dorsalis pedis present (palpable) GI Inspection: obesity Palpation: soft, no hepatosplenomegaly, No guarding and No tender Percussion: dullness to percussion Auscultation: normal bowel sounds General: bladder normal to palpation and No CVA tenderness Back/Spine/Pelvis Back: normal to inspection Cervical Spine: No cervical muscular tenderness Thoracic/Lumbar Spine: No thoracic and lumbar spine normal to inspection, No thoracic spinal tenderness and No lumbar spinal tenderness Skin General: no rashes or lesions noted, No jaundice, No petechiae, No pallor and warm Wounds: wounds noted (5 cm healing wound left dorsal forearm) Neuro General: alert, awake, oriented x3 and CN's II-XI intact bilaterally Cranial Nerves: tongue midline and No nystagmus Cognition: normal cognition Speech: speech normal Motor: strength 5/5 throughout (intact strength but decreased movement right leg due to knee pain) Sensory Exam: no sensory deficits noted Extrem General: capillary refill normal, no calf tenderness, calf tenderness and pedal edema (1+ bilateral ) Left lower extremity: knee (Swelling with small effusion, pain on palpation anterior lateral knee, no patellar femoral crepitus) Objective Labs Result Diagrams: 10/12/18 14:15 10/12/18 14:15 Labs: Laboratory Results - last 24 hr 10/12/18 10/12/18 10/12/18 14:15 14:15 14:15 WBC 6.5 RBC 4.08 L Hgb 13.7 Hct 39.6 L MCV 97.0 MCH 33.6 MCHC 34.6 RDW 13.4 Plt Count 156 Neut % (Auto) 73.0 Lymph % (Auto) 14.1 L [place] % (Auto) 11.9 Eos % (Auto) 0.6 L Baso % (Auto) 0.4 Neut # (Auto) 4800 PT 24.0 H INR 2.0 H APTT 34 Sodium 140 Potassium 3.1 L Chloride 101 Carbon Dioxide 26 BUN 12 Creatinine 0.80 Estimated GFR > 60.0 BUN/Creatinine Ratio 15.0 Glucose 101 Calcium 8.9 Total Bilirubin 1.6 H AST 154 H ALT 89 H Alkaline Phosphatase 88 Total Creatine Kinase 63 CK-MB (CK-2) TNP CK-MB (CK-2) Rel Index TNP Troponin I 0.022 B-Natriuretic Peptide Total Protein 7.1 Albumin 3.8 Globulin 3.3 Albumin/Globulin Ratio 1.2 Lipase 35 10/12/18 14:15 WBC RBC Hgb Hct MCV MCH MCHC RDW Plt Count Neut % (Auto) Lymph % (Auto) [place] % (Auto) Eos % (Auto) Baso % (Auto) Neut # (Auto) PT INR APTT Sodium Potassium Chloride Carbon Dioxide BUN Creatinine Estimated GFR BUN/Creatinine Ratio Glucose Calcium Total Bilirubin AST ALT Alkaline Phosphatase Total Creatine Kinase CK-MB (CK-2) CK-MB (CK-2) Rel Index Troponin I B-Natriuretic Peptide 874 H Total Protein Albumin Globulin Albumin/Globulin Ratio Lipase Assessment & Plan Plan: Assessment/Plan Narrative: Atrial fibrillation The patient has been compliant with metoprolol 12.5 mg at home and has had recurrent atrial fibrillation with associated RVR. Patient is on warfarin with a current INR of 2.0. No complaints of chest pain, shortness of breath for 2 days previously but none on examination or interview taking Patient received diltiazem 20 mg in the ER which decreased the heart rate within normal range for 10-15 minutes where upon RVR reoccurred. The patient is started on diltiazem drip and is being titrated for heart rate. We will correct hypokalemia with a potassium of 3.1 which may improve rhythm but is necessary prior to moving to alternative antiarrhythmics such as Multaq Alcohol abuse Elevated liver function tests. The patient has been sober for 25 days under the care of his family. The patient has had no evidence or report of withdrawal symptoms. Patient has associated elevation of hepatic enzymes with an AST of 154, ALT is 89 and a total bili of 1.6. He shows no jaundice and no evidence of ascites. The patient demonstrates normal mentation with no evidence or concern for elevated ammonia and can be followed on an outpatient basis Right knee pain Status post fall 3 weeks previous with pain continuous since a persistent small effusion. Previous knee films taken found no fractures or dislocations identified degenerative changes. Patient would warrant further investigation with an MRI for internal derangement, meniscal tear. Will request a PT eval. Will continue gabapentin, cymbalta and tramodol for pain. Will assess need to excalate pain medication management
[2018-10-12] MEDS: GABAPENTIN 300 MG CAPSULE PO (20:48)
[2018-10-12] MEDS: SODIUM CHLORIDE 0.9% 1,000 ML 100 ML IV (20:48)
[2018-10-12] MEDS: ATORVASTATIN 10 MG TABLET PO (20:48)
[2018-10-12] MEDS: METHOCARBAMOL 500 MG TABLET 750 MG PO (20:55)
[2018-10-12] MEDS: METOPROLOL IR 25 MG TABLET PO (20:56)
[2018-10-12] MEDS: TRAMADOL 50 MG TABLET PO (21:33)
[2018-10-12] MEDS: MAGNESIUM SULFATE 2 GM/50 ML PIGGYBACK IV (22:15)
--- NOTE | 2018-10-12 22:49 | PC.NURSE ---
Pt admitted to ICU from ED. Able to pivot transfer from [facility] to bed. C/O pain in R knee from previous fall at home. on diltiazem gtt at 5mg/hr, HR 140s-150s. BP 122/87. Titrated gradually up to 15mg/hr. Also given Metoprolol PO 25mg. 2130 HR decreasing to 90s, titrated down and then OFF per protocol. HR 85, BP 102/66. Voiding per urinal 850mls out since admit to unit. Small healing wound from fall on L FA and R elbow.
[2018-10-13] VITALS (16 sets, daily range): BP systolic 91–143; BP diastolic 42–97; PULSE 90–124; RESP 13–24; TEMP 36.1–36.9; O2SAT 94–96
[2018-10-13 06:13] LABS: Add Manual Diff / Slide Review NO; Basophils Percent Auto 0.4 % (0-2); Eosinophils Percent Auto 1.5 % (2-4); Hematocrit 37.4 % (41-53); Hemoglobin 12.8 g/dL (13.5-17.5); Lymphocytes Percent Auto 18.3 % (25-40); Mean Corpuscular HGB Conc 34.2 % (30-36); Mean Corpuscular Hemoglobin 33.2 PG (26-34); Mean Corpuscular Volume 97.1 fL (80-100); Monocytes Percent Auto 13.1 % (3-14); Neutrophils Absolute Auto 3000 /uL (1500-7000); Neutrophils Percent Auto 66.7 % (50-75); Platelet Count 132 X10^3/uL (150-400); Red Blood Cell Count 3.85 X10^6/uL (4.5-5.9); Red Cell Distribution Width 13.8 % (11.6-14.8); White Blood Cell Count 4.4 X10^3/uL (4.5-11.0)
[2018-10-13 06:30] LABS: B Type Natriuretic Peptide 378 (<100)
[2018-10-13 06:35] LABS: BUN Creatinine Ratio 14.4 (6-22); Blood Urea Nitrogen 13 mg/dL (9-20); Calcium 8.6 mg/dL (8.4-10.2); Carbon Dioxide 29 mmol/L (22-32); Chloride 100 mmol/L (98-107); Estimated Glomerular Filt Rate > 60.0 mL/min (>60); Glucose 97 mg/dL (80-110); HEMOLYSIS < 15 (0-50); Magnesium 2.1 mg/dL (1.6-2.3); Potassium 2.9 mmol/L (3.4-5.1); Sodium 140 mmol/L (137-145)
[2018-10-13] MEDS: METOPROLOL IR 25 MG TABLET PO ×3 (06:40→12:46)
[2018-10-13] MEDS: TRAMADOL 50 MG TABLET PO ×3 (06:40→20:23)
[2018-10-13 06:41] LABS: Troponin I 0.018 ng/mL (0.01-0.034)
[2018-10-13] MEDS: GABAPENTIN 300 MG CAPSULE PO ×3 (08:29→20:21)
[2018-10-13] MEDS: METHOCARBAMOL 500 MG TABLET 750 MG PO ×4 (08:30→20:21)
[2018-10-13] MEDS: ASPIRIN EC 81 MG TABLET PO (08:31)
[2018-10-13] MEDS: POTASSIUM CHLORIDE 20 MEQ TAB 40 MEQ PO (08:32)
[2018-10-13] MEDS: DULOXETINE 20 MG CAPSULE PO (08:33)
[2018-10-13] MEDS: POTASSIUM CHLORIDE 20 MEQ TAB PO (08:33)
--- NOTE | 2018-10-13 10:46 | PT.IPTN ---
Physical Therapy Treatment Note M3 PT-IP Subjective Start: 10/13/18 12:51 Freq: NEEDED Status: Active Protocol: Document 10/13/18 12:52 AB (Rec: 10/13/18 12:56 AB [id number]) Subjective Physical Therapy Visit Type Type Patient Refusal Notes Checked on pt and acquire PLOF and home set up but pt refused to get out of bed and mobilize. stated that he has a lot of L knee pain and does not want to do anything. when asked about RLE, stated that he also has paiin on R knee. attempted to eval and initiated palpation on B knees but pt unable to tolerate and refused further assessment. noted (+) bilateral knee swelling and hamstring tightness and IT band tightness. pt agreed for PT to check on him later on but stated that he will not move if the pain is there.
[2018-10-13 13:39] LABS: HEMOLYSIS < 15 (0-50); Potassium 3.8 mmol/L (3.4-5.1)
[2018-10-13] MEDS: METOPROLOL IR 50 MG TABLET PO ×2 (13:46→17:10)
--- NOTE | 2018-10-13 15:41 | CM.DANOTE ---
Addendum entered by Jenn Suggs R.N. 10/13/18 15:54: Confirmed with Steven in UR that patient will be inpatient status. Original Note: DCP: Case received, EMR reviewed and met with patient. Introduced self and role. DCP template completed with information currently available. Patient is a 67 year old male who admitted yesterday evening to the care of the hospitalist team. PCP: None yet, is trying to establish with Dr. Rosenbaum, if he will accept. Payer: confirmed: Medicare. Patient came to hospital via family vehicle with symptoms of right knee pain and swelling, for he had a fall at home recently. Patient, while here, was noted to have A-Fib with rapid ventricular response. For this reason, he is in the ICU. Patient also has history of ETOH use, but not recently. Met with patient in room. Lives with his mother, Orlin, and step-father Campos. Met them both, they are supportive. Patient is originally from [place], and came up here to stay with his mother. His original home is in [place], [place]. Patient has been here recently. Patient alert, notes delayed response when question is asked. Has a walker that he uses at home, and does not drive. At this time, does not have a primary provider, but his mother is attempting to get Dr. Rosenbaum to take patient, for this is her and her 's provider. She will be going to the clinic to inquire if he will take patient. Discussed options with family at discharge. Is aware that he will not be able to qualify for home health, for he has no provider. Discussed skilled option, for at this time, patient not wanting to get up and work with physical therapy. Will be determined if he will able to return home. P: To be determined, if he may need skilled or can return home. Will also depend upon observation versus inpatient status. Jenn Suggs RN/Returned Goods Receiving Clerk
--- NOTE | 2018-10-13 16:44 | PT.IIE ---
Current Diagnoses Unspecified atrial fibrillation (10/12/18) Surgical History (Last Updated 10/12/18 @ 20:11 by PEE Wen) S/P ablation of atrial fibrillation (Acute) Medical History (Last Updated 10/12/18 @ 20:14 by PEE Wen) Elevated LFTs (Acute) Atrial fibrillation (Acute) ETOH abuse (Acute) Physical Therapy Inpatient Evaluation/Re-Eval M1 PT/OT-IP Prior Functional Status Start: 10/13/18 12:51 Freq: NEEDED Status: Active Protocol: Document 10/13/18 16:44 RCC (Rec: 10/13/18 17:37 [facility] [id number]) Medical Review Prior Functional Status Medical History Reviewed Yes Mobility and Gait stated that he is independent with all mobilities and ambulation without AD but has been using a 4WW for ~ 1 week now due to knee pain. Social History Household Members family Living Arrangements House Number of Floors (Floors) Two Floors Number of Stairs To Enter/Railing? no steps to enter/exit Home Equipment Front Wheel Walker Additional Social History Comment currently living/visiting mother and axsvln-co-she. Pt reportedly had a fall at home, unwittnessed on garage steps. Initially, father-in- law stated that pt c/o back pain, knee pain was new upon admission and pt was ambulatory into the ED with a walker. Pt found to be in A- fibe with RVR on admission, and had c/o R knee pain and SOB. Radiograph of R knee showed inflammation, but no fx . M2 PT-IP Current Condition Start: 10/13/18 12:51 Freq: NEEDED Status: Active Protocol: Document 10/13/18 16:44 RCC (Rec: 10/13/18 17:37 [facility] [id number]) Physical Therapy Current Condition Current Condition Evaluation Date 10/13/18 Treatment Diagnosis A-fib with RVR, R knee pain, h /o falls, impaired gait tolerance Weight Bearing Status Weight Bearing Status Weight Bear as Tolerated M3 PT-IP Subjective Start: 10/13/18 12:51 Freq: NEEDED Status: Active Protocol: Document 10/13/18 16:44 RCC (Rec: 10/13/18 17:37 [facility] [id number]) Subjective Physical Therapy Visit Type Type Initial Evaluation Visit Start Time 16:00 Visit Stop Time 16:44 Total Visit Minutes 44 Number of SIGNALS ANALYST Visits 0 Physical Therapy Visit Comments Patient Comments Pt notes that pain is too high to ambulate greater than a few steps. Pain in bilateral knees. Patient Goals decrease pain Therapy Pain Assessment Location bilateral knees Description Sharp Stabbing Tender With Movement Pain Behaviors Facial Grimacing Guarding Pain Management Techniques Apply Cold Modification of Treatment M4 PT-IP Mobility and Gait Start: 10/13/18 12:51 Freq: NEEDED Status: Active Protocol: Document 10/13/18 16:44 RCC (Rec: 10/13/18 17:37 [facility] [id number]) PT-Bed Mobility Assessment Supine to Sit Supine to Sit Contact Guard Assistance Sit to Supine Sit to Supine Contact Guard Assistance Scooting Scooting to Edge of Bed Standby Assistance Scooting Up and Down in Bed Dependent PT-Transfer Assessment Sit to and From Stand Sit to and from Stand Contact Guard Assistance Use of Upper Extremities Equipment Transfer Assistive Device Gait Belt Front Wheeled Walker Transfers Transfer Destination Bed Transfer Technique Stand Step Pivot Transfer Ability Level of Assist Contact Guard Assistance Gait Assessment Gait Gait Assistance Required: Contact Guard Assist 1 Person Assist Distance (Feet) 3 Able to Maintain Weight Bearing Status Yes During Gait Assistive Devices Assistive Device Gait Belt Front Wheeled Walker Gait Deviations General Gait Pattern Antalgic Decreased Stride Length Decreased Feet Clearance Narrow Based Gait Step-to Gait Factors Limiting Gait Function Factors Limiting Gait Function Decreased Activity Tolerance Decreased Strength Limited Range of Motion Pain Poor Balance Comments Gait Comments pt c/o high levels of pain with WB, requested to discontinue ambulation after 3 ft PT-Balance Assessment Sitting Balance and Reactions Static Sitting Balance Ability Good Dynamic Sitting Balance Ability Good Standing Balance and Reactions Static Standing Balance Ability Fair Dynamic Standing Balance Ability Poor Device Used FWW- poor due to pain M5 PT-IP Objective Assessments Start: 10/13/18 12:51 Freq: NEEDED Status: Active Protocol: Document 10/13/18 16:44 RCC (Rec: 10/13/18 17:37 [facility] [id number]) Orientation Orientation/Cognition Level of Alertness Alert Gross Range of Motion Lower Extremity ROM Assessment Bilaterally Impaired Impairments R knee ROM- passively to 100 degrees knee flexion, active 60 degrees, extension lacking 10 degrees L knee ROM- passively to 40 degrees with c/o pain anterolateral and posterior knee, extension lacking 10 degrees Strength Lower Extremity Strength Assessment Bilaterally Impaired Hip flexion 3+/5 B Knee flexion and extension 3/5 B Coordination Assessment Gross Coordination Gross Coordination WNL Muscle Tone Comments Muscle Tone Comments hypertonicity of the B hamstrings Other Assessments Other Other Assessments negative Bubba's, varus and valgus @ 0 and 25 deg. B. Unable to test meniscus due to pain and unable to relax with deeper bend of knees M6 PT-IP Treatment Start: 10/13/18 12:51 Freq: NEEDED Status: Active Protocol: Document 10/13/18 16:44 RCC (Rec: 10/13/18 17:37 [facility] [id number]) Physical Therapy Treatment Education Education Provided Safety M7 PT-IP Assessment and Plan Start: 10/13/18 12:51 Freq: NEEDED Status: Active Protocol: Document 10/13/18 16:44 RCC (Rec: 10/13/18 17:37 [facility] [id number]) PT Summary Assessment and Plan Potential Rehabilitation Potential Good Status of Condition at Evaluation Evolving Summary Impairments Pain ROM Strength Balance Tone Bed Mobility Transfers Gait Activity Tolerance Assessment Summary Pt with highly guarded presentation, unable to test meniscus bilaterally due to guarding, pain and limited PROM. Pt is tender along the lateral knees at the fibular heads and L LCL (valgus stress testing negative). Pt does have increased temperature to both knee joints. No bruising or abrasions noted in either knee. At this time, the pt's pain is too high to advance gait, he is able to stand and WB and take small steps, cleared to transfer with nursing to [facility] but not to ambulate. Hopeful to progress this pt's ambulation and have better pain control. At this time, mechanism of knee pain is unknown, does not appear to be related to trauma with examination, although limited by pain. Pt may not be able to return home if he does not improve with his mobility, and would benefit from SNF rehabilitation if he is unable to progress to improve his gait tolerance, functional independence, and to promote a safe d/c. Goals Bed Mobility Goal Independent Transfer Goal Independent Gait Goal Standby Assistance Front Wheel Walker Gait Distance 150 Days to Meet Goals 5 Frequency of Treatment Frequency Of Treatment Once a Day Treatment Plan Physical Therapy Treatment Plan Bed Mobility Training Transfer Training Gait Training Therapeutic Exercise Balance Retraining Discharge Planning Hot or Cold Pack Neuromuscular Re-ed Other Recommendations and Next Treatment prog. gait, ice if needed for Focus pain/swelling, knee joint ROM Recommendations To Nursing Amount of Assist Needed 1 Person Assist Discharge Recommendations PT Discharge Recommendations SNF Rehab
[2018-10-13] MEDS: WARFARIN 2 MG TABLET PO (17:10)
--- NOTE | 2018-10-13 18:56 | DI.ECHO.S_ITS ---
[facility]---------+ [facility] +---------+ : : [address] : : : : [id number] : : : : Phone: [phone]+ Echocardiogram Report + + :Name: ARMINDA ANGEL Study Date: 10/13/2018 Height: 72 in : :[facility] Weight: 220 lb : : Gender: Male BSA: 2.2 m2 : :: 1950 Age: 67 yrs BP: 127/66 mmHg: :Reason For Study: Atrial fibrillation, SOB : :Ordering Physician: Javed : :Hospitalist Performed By: Yesenia Post : :Referring: [email or web address] : + + Interpretation Summary The limited echo is done to reassess left ventricular function in the setting of hospital admission due to rapid A-Fib and shortness of breath. The patient was not able to be in the optimal left lateral decubitus position due to left knee pain. The left ventricle is normal in size. Left ventricular ejection fraction is estimated to be 50%. There has been no significant change since the previous study. Procedure: A two-dimensional transthoracic echocardiogram with color flow and Doppler was performed in limited views only. The study quality was technically difficult. A contrast injection of Definity was performed to improve assessment of LV function. Comparison is made with the echocardiogram of 09/30/2018. The patient was not able to be in the optimal left lateral decubitus position due to left knee pain. Left Ventricle: The left ventricle is normal in size. Left ventricular wall thickness is mildly increased. Left ventricular ejection fraction is estimated to be 50%. There has been no significant change since the previous study. Mitral Valve: There is mild mitral regurgitation. Pericardium/ Pleura There is no pericardial effusion. MMode/2D Measurements & Calculations LVIDd: 4.4 cm LVIDs: 3.2 cm FS: 28.2 % IVSd: 0.93 cm LVPWd: 0.98 cm LV levin. diameter/BSA (cm/m^2): 2.0 LV sys. diameter/BSA (cm/m^2): 1.4 Doppler Measurements & Calculations MV E max sarah: 67.1 cm/sec MV P1/2t max sarah: 67.1 cm/sec MV P1/2t: 26.4 msec MVA(P1/2t): 8.3 cm2 Reading Physician:TRUPTI
[2018-10-13] MEDS: ATORVASTATIN 10 MG TABLET PO (20:21)
--- NOTE | 2018-10-13 21:08 | P.PN_ITS ---
Subjective Date Patient Seen: 10/13/18 Interval history: Raymundo Dominguez is a 67-year-old male with a history significant for atrial fibrillation with RVR, elevated LFTs, a long-standing alcohol use disorder until 8 weeks ago who presented for right knee pain and was found to be in atrial fibrillation with RVR. The patient is resting in bed comfortably and in no acute distress. He was stable over night. His heart rate continues to range from 110-130. He complains of insomnia and continued knee pain. He denies headache, chest pain, shortness of breath, abdominal pain, nausea, vomiting, fever, chills, dysuria, diarrhea, or constipation. He is voiding and eliminating without difficulty. He is profoundly weak and is minimally participatory with physical therapy. Exam Vital Signs (past 8 hours): - 10/13/18 14:00 10/13/18 20:00 Temperature 97.9 F Pulse Rate 107 H 113 H Respiratory Rate 17 22 Blood Pressure 128/78 121/87 Pulse Oximetry 95 94 Oxygen Delivery Method Room Air Narrative Exam Narrative: General: Elderly gentleman sitting in bed and no acute distress , appears chronically ill, appropriately interactive. HEENT: Normocephalic, atraumatic. External ears without defect. Pupils equal, round, and reactive to light. Anicteric sclerae, moist conjunctivae, and no lid lag. Neck: Supple with full range of motion. No lymphadenopathy or thyromegaly. Cardiovascular: Irregularly irregular without murmurs, rubs, or gallops appreciated. Pulmonary: Clear to auscultation bilaterally with end-expiratory wheezes throughout. Normal respiratory effort with no use of accessory muscles. Abdomen: Soft, protuberant, mildly distended, nontender, nondistended. Hepatosplenomegaly present. No masses appreciated. Extremities: No clubbing or cyanosis. Mild bilateral lighted pitting pedal edema. Skin: Normal temperature, turgor, and texture; no rash, ulcers, or subcutaneous nodules appreciated. Neurological: Cranial nerves grossly intact. Profoundly weak with known gait impairment and uses FWW. Psychiatric: Normal mood and flat affect. Alert and oriented to person, place, and time. Objective Labs Result Diagrams: 10/13/18 04:58 10/13/18 13:08 Labs: Laboratory Results - last 24 hr 10/12/18 10/13/18 10/13/18 19:10 04:58 04:58 WBC RBC Hgb Hct MCV MCH MCHC RDW Plt Count Neut % (Auto) Lymph % (Auto) [place] % (Auto) Eos % (Auto) Baso % (Auto) Neut # (Auto) Sodium 140 Potassium 2.9 L Chloride 100 Carbon Dioxide 29 BUN 13 Creatinine 0.90 Estimated GFR > 60.0 BUN/Creatinine Ratio 14.4 Glucose 97 Calcium 8.6 Magnesium 2.1 Troponin I 0.018 B-Natriuretic Peptide 378 H Nasal Screen MRSA (PCR) Negative for mrsa 10/13/18 10/13/18 04:58 13:08 WBC 4.4 L RBC 3.85 L Hgb 12.8 L Hct 37.4 L MCV 97.1 MCH 33.2 MCHC 34.2 RDW 13.8 Plt Count 132 L Neut % (Auto) 66.7 Lymph % (Auto) 18.3 L [place] % (Auto) 13.1 Eos % (Auto) 1.5 L Baso % (Auto) 0.4 Neut # (Auto) 3000 Sodium Potassium 3.8 Chloride Carbon Dioxide BUN Creatinine Estimated GFR BUN/Creatinine Ratio Glucose Calcium Magnesium Troponin I B-Natriuretic Peptide Nasal Screen MRSA (PCR) Assessment & Plan Plan: Assessment/Plan Narrative: Raymundo Dominguez is a 67-year-old male with a history significant for atrial fibrillation with RVR, elevated LFTs, a long-standing alcohol use disorder until 8 weeks ago who presented for right knee pain and was found to be in atrial fibrillation with RVR. 1. Atrial fibrillation with RVR, present on admission. Active. -The patient presented for right knee pain and was found to be in atrial fibrillation with RVR. He reports has been compliant with metoprolol 12.5 mg BID. -Continue warfarin and check INR daily. -Patient was initially started on a Dilt drip which was weaned off. He is now on metoprolol tartrate 50 mg every 6 hr. Will adjust as necessary for rate control. 2. Acute hypokalemia, present on admission. Active. -will continue to replete as necessary. Continue to monitor potassium daily. 3. Pancytopenia, present on admission. Stable. .-likely secondary to chronic alcohol use and likely liver disease 4. History of alcohol use disorder, in remission. -The patient reports he has abstained from alcohol for 8 weeks, however, he has reported different time frames to different staff. -Patient has associated elevation of hepatic enzymes with an AST of 154, ALT is 89 and a total bili of 1.6. He shows no jaundice and no evidence of ascites. -No signs of withdrawal symptoms. -Ordered thiamine 100 mg daily. 5. Transaminitis, likely chronic, present on admission. Active. -Secondary to longstanding alcohol use. -AST of 154, ALT is 89 and a total bili of 1.6. He shows no jaundice and no evidence of ascites. -Continue to monitor LFTs daily. 6. Right knee pain, present on admission. Active. -Status post fall 3 weeks previous with pain continuous since a persistent small effusion. -Previous knee films taken found no fractures or dislocations identified degenerative changes. -Patient would warrant further investigation with an MRI for internal derangement, meniscal tear. -Continue physical therapy evaluation and treatment. -Continue gabapentin, cymbalta and tramodol for pain. DVT prophylaxis: Warfarin Disposition: There are several barriers to discharge including: Profound weakness for which the patient would likely benefit from a half-way facility, as well as, the patient has no primary care physician [place] and [place] of warfarin. Patient will likely be medically ready to discharge and 1-2 days depending upon rate control and improvement in overall strength and mobility.
[2018-10-14] VITALS (8 sets, daily range): BP systolic 102–126; BP diastolic 58–81; PULSE 103–125; RESP 16–23; TEMP 36.2–36.8; O2SAT 91–98
[2018-10-14] MEDS: METOPROLOL IR 50 MG TABLET PO ×2 (06:11)
--- NOTE | 2018-10-14 07:11 | PM.PN.1 ---
Subjective Date Patient Seen: 10/14/18 Interval history: Raymundo Dominguez is a 67-year-old male with a history significant for atrial fibrillation with RVR, elevated LFTs, a long-standing alcohol use disorder until 8 weeks ago who presented for right knee pain and was found to be in atrial fibrillation with RVR. The patient is resting in bed comfortably and in no acute distress. He was stable over night and reports he slept well. His heart rate continues to range from 110-120 on average. He continues to complain of bilateral knee pain but does not want to take medicine to help alleviate this pain. He denies headache, chest pain, shortness of breath, abdominal pain, nausea, vomiting, fever, chills, dysuria, diarrhea, or constipation. He is voiding and eliminating without difficulty. He he continues to be deconditioned and weak which he readily admits to but reports he is willing to work with physical therapy today. Exam Vital Signs (past 8 hours): - 10/14/18 00:00 10/14/18 02:00 10/14/18 04:30 Temperature 97.1 F L Pulse Rate 125 H 122 H 117 H Respiratory Rate 21 16 23 Blood Pressure 118/79 102/81 126/77 Pulse Oximetry 91 94 97 10/14/18 05:00 Temperature 98.1 F Pulse Rate Respiratory Rate Blood Pressure Pulse Oximetry Oxygen Delivery Method Room Air Narrative Exam Narrative: General: Elderly gentleman sitting in bed and no acute distress, appears chronically ill, appropriately interactive. HEENT: Normocephalic, atraumatic. External ears without defect. Pupils equal, round, and reactive to light. Anicteric sclerae, moist conjunctivae, and no lid lag. Neck: Supple with full range of motion. No lymphadenopathy or thyromegaly. Cardiovascular: Irregularly irregular without murmurs, rubs, or gallops appreciated. Pulmonary: Clear to auscultation bilaterally with end-expiratory wheezes throughout. Normal respiratory effort with no use of accessory muscles. Abdomen: Soft, protuberant, mildly distended, nontender, nondistended. Hepatosplenomegaly present. No masses appreciated. Extremities: No clubbing or cyanosis. Mild bilateral lighted pitting pedal edema. Skin: Normal temperature, turgor, and texture; no rash, ulcers, or subcutaneous nodules appreciated. Neurological: Cranial nerves grossly intact. Profoundly weak with known gait impairment and uses FWW. Psychiatric: Normal mood and flat affect. Alert and oriented to person, place, and time. Objective Labs Result Diagrams: 10/13/18 04:58 10/13/18 13:08 Labs: Laboratory Results - last 24 hr 10/13/18 10/13/18 04:58 13:08 WBC 4.4 L RBC 3.85 L Hgb 12.8 L Hct 37.4 L MCV 97.1 MCH 33.2 MCHC 34.2 RDW 13.8 Plt Count 132 L Neut % (Auto) 66.7 Lymph % (Auto) 18.3 L [place] % (Auto) 13.1 Eos % (Auto) 1.5 L Baso % (Auto) 0.4 Neut # (Auto) 3000 Potassium 3.8 Assessment & Plan Plan: Assessment/Plan Narrative: Raymundo Dominguez is a 67-year-old male with a history significant for atrial fibrillation with RVR, elevated LFTs, a long-standing alcohol use disorder until 8 weeks ago who presented for right knee pain and was found to be in atrial fibrillation with RVR. 1. Atrial fibrillation with RVR, present on admission. Active. -The patient presented for right knee pain and was found to be in atrial fibrillation with RVR. He reports has been compliant with metoprolol 12.5 mg BID. -Continue warfarin and check INR daily. -Patient was initially started on a Dilt drip which was weaned off. Will increase and change metoprolol tartrate to 150 mg b.i.d. to better control his rate and provider regimen that he will likely be more compliant with. Will adjust as necessary for rate control. -Echocardiogram did not demonstrate any significant change from previous study; which demonstrated mild LVH normal systolic function with EF of 50%. No valvular or structural abnormalities. 2. Acute hypokalemia, present on admission. Active. -Will continue to replete as necessary. Continue to monitor potassium daily. 3. Pancytopenia, present on admission. Stable. -Likely secondary to chronic alcohol use and likely liver disease -Continue to monitor blood count daily. 4. History of alcohol use disorder, in remission. -The patient reports he has abstained from alcohol for 8 weeks, however, he has reported different time frames to different staff. -Patient has associated elevation of hepatic enzymes with an AST of 154, ALT is 89 and a total bili of 1.6. He shows no jaundice and no evidence of ascites. -No signs of withdrawal symptoms. -Ordered thiamine 100 mg daily. 5. Transaminitis, likely chronic, present on admission. Active. -Secondary to longstanding alcohol use. -AST of 154, ALT is 89 and a total bili of 1.6. He shows no jaundice and no evidence of ascites. -Continue to monitor LFTs daily. 6. Right knee pain, present on admission. Active. -Status post fall 3 weeks previous with pain continuous since a persistent small effusion. -Previous knee films taken found no fractures or dislocations identified degenerative changes. -Patient would warrant further investigation with an MRI for internal derangement, meniscal tear. -Continue physical therapy evaluation and treatment. -Continue gabapentin, cymbalta and tramodol for pain. DVT prophylaxis: Warfarin Disposition: There are several barriers to discharge including: Profound weakness for which the patient would likely benefit from a retirement facility, as well as, the patient has no primary care physician as [place] and monitoring of warfarin. Patient will likely be medically ready to discharge and 1-2 days depending upon rate control and improvement in overall strength and mobility.
[2018-10-14] MEDS: METOPROLOL IR 50 MG TABLET 100 MG PO (08:11)
[2018-10-14] MEDS: THIAMINE 100 MG TABLET PO (08:11)
[2018-10-14] MEDS: GABAPENTIN 300 MG CAPSULE PO ×3 (08:16→20:08)
[2018-10-14] MEDS: ASPIRIN EC 81 MG TABLET PO (08:16)
[2018-10-14] MEDS: POTASSIUM CHLORIDE 20 MEQ TAB PO (08:16)
[2018-10-14] MEDS: DULOXETINE 20 MG CAPSULE PO (08:16)
[2018-10-14] MEDS: METHOCARBAMOL 500 MG TABLET 750 MG PO ×4 (08:16→20:08)
[2018-10-14] MEDS: SODIUM CHLORIDE 0.9% FLUSH 10 ML IV ×2 (08:20→20:08)
[2018-10-14] MEDS: TRAMADOL 50 MG TABLET PO ×3 (08:26→20:10)
[2018-10-14 10:05] LABS: Add Manual Diff / Slide Review NO; Basophils Percent Auto 0.5 % (0-2); Eosinophils Percent Auto 1.1 % (2-4); Hematocrit 38.7 % (41-53); Hemoglobin 13.1 g/dL (13.5-17.5); Lymphocytes Percent Auto 11.2 % (25-40); Mean Corpuscular HGB Conc 33.8 % (30-36); Mean Corpuscular Hemoglobin 32.7 PG (26-34); Mean Corpuscular Volume 96.8 fL (80-100); Monocytes Percent Auto 11.5 % (3-14); Neutrophils Absolute Auto 5000 /uL (1500-7000); Neutrophils Percent Auto 75.7 % (50-75); Platelet Count 172 X10^3/uL (150-400); Red Blood Cell Count 3.99 X10^6/uL (4.5-5.9); Red Cell Distribution Width 13.7 % (11.6-14.8); White Blood Cell Count 6.7 X10^3/uL (4.5-11.0)
[2018-10-14 10:11] LABS: INR 2.7 (0.9-1.3); Prothrombin Time 31.4 SECONDS (10.1-12.7)
[2018-10-14 10:16] LABS: Alanine Aminotransferase 72 IU/L (21-72); Albumin 3.3 g/dL (3.5-5.0); Alkaline Phosphatase 72 U/L (38-126); Aspartate Aminotransferase 79 IU/L (17-59); BUN Creatinine Ratio 17.1 (6-22); Bilirubin Total 1.3 mg/dL (0.2-1.3); Blood Urea Nitrogen 12 mg/dL (9-20); Calcium 8.7 mg/dL (8.4-10.2); Carbon Dioxide 28 mmol/L (22-32); Chloride 101 mmol/L (98-107); Estimated Glomerular Filt Rate > 60.0 mL/min (>60); Globulin 3.3 g/dL (1.7-4.1); Glucose 107 mg/dL (80-110); HEMOLYSIS < 15 (0-50); Magnesium 1.7 mg/dL (1.6-2.3); Potassium 3.8 mmol/L (3.4-5.1); Sodium 140 mmol/L (137-145); Total Protein 6.6 g/dL (6.3-8.2)
--- NOTE | 2018-10-14 11:50 | PT.IPTN ---
Current Diagnoses Unspecified atrial fibrillation (10/12/18) Physical Therapy Treatment Note M2 PT-IP Current Condition Start: 10/13/18 12:51 Freq: NEEDED Status: Active Protocol: Document 10/14/18 11:50 RCC (Rec: 10/14/18 12:48 RCC [email or web address]) Physical Therapy Current Condition Current Condition Evaluation Date 10/13/18 Treatment Diagnosis A-fib with RVR, R knee pain, h /o falls, impaired gait tolerance Precautions Lumbar Precautions Log Roll No Twisting Limit Bending Lifting Restriction of 10 lbs Weight Bearing Status Weight Bearing Status Weight Bear as Tolerated M3 PT-IP Subjective Start: 10/13/18 12:51 Freq: NEEDED Status: Active Protocol: Document 10/14/18 11:50 RCC (Rec: 10/14/18 12:48 RCC [email or web address]) Subjective Physical Therapy Visit Type Type Treatment Note Visit Start Time 11:35 Visit Stop Time 11:50 Total Visit Minutes 15 Number of ENVIRONMENTAL ISSUES INSTRUCTOR Visits 0 Physical Therapy Visit Comments Patient Comments pt feeling less pain in his knees, willing to work hard to be able to go home Patient Goals to go home Therapy Pain Assessment Location bilateral knees Intensity 2 Scale Used Numeric (1 - 10) M4 PT-IP Mobility and Gait Start: 10/13/18 12:51 Freq: NEEDED Status: Active Protocol: Document 10/14/18 11:50 RCC (Rec: 10/14/18 12:48 RCC [email or web address]) PT-Bed Mobility Assessment Supine to Sit Supine to Sit Independent Scooting Scooting to Edge of Bed Independent PT-Transfer Assessment Sit to and From Stand Sit to and from Stand Standby Assistance Equipment Transfer Assistive Device Gait Belt Front Wheeled Walker Transfers Transfer Destination Chair Transfer Technique Stand Step Pivot Transfer Ability Level of Assist Standby Assistance Gait Assessment Gait Gait Assistance Required: Standby Assistance Distance (Feet) 50 Assistive Devices Assistive Device Gait Belt Front Wheeled Walker Gait Deviations General Gait Pattern Antalgic Decreased Feet Clearance Factors Limiting Gait Function Factors Limiting Gait Function Decreased Activity Tolerance Decreased Strength Pain Poor Balance M5 PT-IP Objective Assessments Start: 10/13/18 12:51 Freq: NEEDED Status: Active Protocol: Document 10/14/18 11:50 RCC (Rec: 10/14/18 12:48 RCC [email or web address]) Gross Range of Motion Lower Extremity ROM Impairments bilateral knee flexion to 100 degrees sitting to initiate sit to stand from chair. M6 PT-IP Treatment Start: 10/13/18 12:51 Freq: NEEDED Status: Active Protocol: Document 10/14/18 11:50 RCC (Rec: 10/14/18 12:48 RCC [email or web address]) Physical Therapy Treatment Other Treatments Other Treatment Performed STS training from chair x1 M7 PT-IP Assessment and Plan Start: 10/13/18 12:51 Freq: NEEDED Status: Active Protocol: Document 10/14/18 11:50 RCC (Rec: 10/14/18 12:48 RCC [email or web address]) PT Summary Assessment and Plan Summary Assessment Summary Pt able to achieve 100 degrees AROM of the bilateral knees today, no c/o pain. He is able to perform bed mobility indep . and ambulates 50 ft before fatigue sets in using a FWW. Pt is not at his prior level of function of mobility indep. without device, but is improving and may be able to d /c home with assistance if he continues to progress. Goals Bed Mobility Goal Independent Transfer Goal Independent Gait Goal Standby Assistance Front Wheel Walker Gait Distance 150 Days to Meet Goals 5 Frequency of Treatment Frequency Of Treatment Once a Day Treatment Plan Other Recommendations and Next Treatment cont. to progress gait and Focus independence with mobility, responds well to mobilizing himself if given goals ahead of time and reasoning for goals (i.e. to be able to return home) Recommendations To Nursing Amount of Assist Needed 1 Person Assist Discharge Recommendations PT Discharge Recommendations Home with Assistance Home Health
--- NOTE | 2018-10-14 15:01 | PC.NURSE ---
Pt worked with PT nad did well- sat up in chair x 1-1.5 hours during lunch which he did not take much- continued poor appetite - voided small amount x 1 this shift per urinal- hopeful to d/c to his mothers home tomorrow
--- NOTE | 2018-10-14 15:11 | CM.DPC ---
DCP Cont: Discussed patient at rounds today. Mentioned discharge plan, for patient currently has no provider. Mother has been attempting to get patient a physician, Dr. Rosenbaum. Concerns have risen that this provider is booked out for months, and unknown if he will be able to take patient, and if so, could be several months. Discussed physicans who may be able to take patient sooner. [facility], Susan larkin, may be taking new patients. Also discussed medications, for hospitalist mentioned that if patient goes home on Coumadin, someone would need to manage. Discussed various options, such as Xeralto, but unknown if patient could afford, or if he had any Medicare D coverage. Spoke to Campos, step-father. Stated that patient does not have Medicare D, but his brother handles his finances, and still lives in [place] He did not want to give point of contact information, as he stated that he communicates to brother routinely, if he has any financial needs. He stated that he was not concerned about this. Can be discussed at next team rounds, for patient is wanting to go home. Brother stated that he has the home set up for him, rails in the showers, etc. P: DCP to continue to follow. Patient could be going home in the next few days. Jenn Suggs RN/Dental Laboratory Technician
[2018-10-14] MEDS: WARFARIN 2 MG TABLET PO (17:20)
[2018-10-14] MEDS: METOPROLOL IR 50 MG TABLET 150 MG PO (20:08)
[2018-10-14] MEDS: ATORVASTATIN 10 MG TABLET PO (20:08)
--- NOTE | 2018-10-14 20:48 | PC.NURSE ---
1500- assumed care of pt from outgoing shift. pt awake and alert. family at bedside. Pt has belongings and call light in reach. discussed plan of care, medications and possible discharge. Pt and family asked multiple questions and answered to their satisfaction. Pt only ate half of his meatloaf and all of his mashed potatoes and drink. pt continue s to have low urine output. bladder scan post void was 150. Pt states he doesn't feel like he has to pee. Pt refused to get up to chair for dinner. family left shortly before dinner. pt verbalized needs. will continue to monitor. bed alarm on. side rails upx3.
[2018-10-15] VITALS: BP 120/72; PULSE 90; RESP 20; TEMP 36.2; O2SAT 93
[2018-10-15 04:00] VITALS: BP 97/54; PULSE 95; RESP 16; TEMP 36.5; O2SAT 94
[2018-10-15 05:29] LABS: Add Manual Diff / Slide Review NO; Basophils Percent Auto 0.8 % (0-2); Eosinophils Percent Auto 1.5 % (2-4); Hematocrit 38.3 % (41-53); Hemoglobin 12.8 g/dL (13.5-17.5); INR 2.3 (0.9-1.3); Lymphocytes Percent Auto 20.9 % (25-40); Mean Corpuscular HGB Conc 33.4 % (30-36); Mean Corpuscular Hemoglobin 32.6 PG (26-34); Mean Corpuscular Volume 97.5 fL (80-100); Monocytes Percent Auto 11.5 % (3-14); Neutrophils Absolute Auto 3500 /uL (1500-7000); Neutrophils Percent Auto 65.3 % (50-75); Platelet Count 158 X10^3/uL (150-400); Prothrombin Time 26.9 SECONDS (10.1-12.7); Red Blood Cell Count 3.93 X10^6/uL (4.5-5.9); Red Cell Distribution Width 13.5 % (11.6-14.8); White Blood Cell Count 5.4 X10^3/uL (4.5-11.0)
[2018-10-15 05:33] LABS: Alanine Aminotransferase 65 IU/L (21-72); Albumin 3.1 g/dL (3.5-5.0); Alkaline Phosphatase 70 U/L (38-126); Aspartate Aminotransferase 75 IU/L (17-59); BUN Creatinine Ratio 17.5 (6-22); Blood Urea Nitrogen 14 mg/dL (9-20); Calcium 8.6 mg/dL (8.4-10.2); Carbon Dioxide 26 mmol/L (22-32); Chloride 101 mmol/L (98-107); Estimated Glomerular Filt Rate > 60.0 mL/min (>60); Globulin 3.1 g/dL (1.7-4.1); Glucose 95 mg/dL (80-110); HEMOLYSIS < 15 (0-50); Magnesium 1.7 mg/dL (1.6-2.3); Potassium 3.5 mmol/L (3.4-5.1); Sodium 135 mmol/L (137-145); Total Protein 6.2 g/dL (6.3-8.2)
--- NOTE | 2018-10-15 07:01 | PM.PN.1 ---
Subjective Date Patient Seen: 10/15/18 Interval history: Raymundo Dominguez is a 67-year-old male with a history significant for atrial fibrillation with RVR, elevated LFTs, a long-standing alcohol use disorder until 8 weeks ago who presented for right knee pain and was found to be in atrial fibrillation with RVR. The patient is resting in bed comfortably and in no acute distress. He was stable over night and reports he slept well. His heart rate continues to range from 110-120 on average. He continues to complain of bilateral knee pain but does not want to take medicine to help alleviate this pain. He denies headache, chest pain, shortness of breath, abdominal pain, nausea, vomiting, fever, chills, dysuria, diarrhea, or constipation. He is voiding and eliminating without difficulty. He he continues to be deconditioned and weak which he readily admits to but reports he is willing to work with physical therapy today. Exam Vital Signs (past 8 hours): - 10/15/18 00:00 10/15/18 04:00 Temperature 97.2 F L 97.7 F Pulse Rate 90 95 H Respiratory Rate 20 16 Blood Pressure 120/72 97/54 L Pulse Oximetry 93 94 Oxygen Delivery Method Room Air Oxygen Flow Rate 0 Narrative Exam Narrative: General: Elderly gentleman sitting in bed and no acute distress, appears chronically ill, appropriately interactive. HEENT: Normocephalic, atraumatic. External ears without defect. Pupils equal, round, and reactive to light. Anicteric sclerae, moist conjunctivae, and no lid lag. Neck: Supple with full range of motion. No lymphadenopathy or thyromegaly. Cardiovascular: Irregularly irregular without murmurs, rubs, or gallops appreciated. Pulmonary: Clear to auscultation bilaterally with end-expiratory wheezes throughout. Normal respiratory effort with no use of accessory muscles. Abdomen: Soft, protuberant, mildly distended, nontender, nondistended. Hepatosplenomegaly present. No masses appreciated. Extremities: No clubbing or cyanosis. Mild bilateral lighted pitting pedal edema. Skin: Normal temperature, turgor, and texture; no rash, ulcers, or subcutaneous nodules appreciated. Neurological: Cranial nerves grossly intact. Profoundly weak with known gait impairment and uses FWW. Psychiatric: Normal mood and flat affect. Alert and oriented to person, place, and time. Objective Labs Result Diagrams: 12/24/18 05:08 10/15/18 05:08 Labs: Laboratory Results - last 24 hr 10/14/18 10/14/18 10/14/18 10:00 10:00 10:00 WBC 6.7 D RBC 3.99 L Hgb 13.1 L Hct 38.7 L MCV 96.8 MCH 32.7 MCHC 33.8 RDW 13.7 Plt Count 172 Neut % (Auto) 75.7 H Lymph % (Auto) 11.2 L [place] % (Auto) 11.5 Eos % (Auto) 1.1 L Baso % (Auto) 0.5 Neut # (Auto) 5000 PT 31.4 H D INR 2.7 H Sodium 140 Potassium 3.8 Chloride 101 Carbon Dioxide 28 BUN 12 Creatinine 0.70 Estimated GFR > 60.0 BUN/Creatinine Ratio 17.1 Glucose 107 Calcium 8.7 Magnesium 1.7 Total Bilirubin 1.3 AST 79 H ALT 72 Alkaline Phosphatase 72 Total Protein 6.6 Albumin 3.3 L Globulin 3.3 Albumin/Globulin Ratio 1.0 10/15/18 10/15/18 10/15/18 05:08 05:08 05:08 WBC 5.4 RBC 3.93 L Hgb 12.8 L Hct 38.3 L MCV 97.5 MCH 32.6 MCHC 33.4 RDW 13.5 Plt Count 158 Neut % (Auto) 65.3 Lymph % (Auto) 20.9 L [place] % (Auto) 11.5 Eos % (Auto) 1.5 L Baso % (Auto) 0.8 Neut # (Auto) 3500 PT 26.9 H INR 2.3 H Sodium 135 L Potassium 3.5 Chloride 101 Carbon Dioxide 26 BUN 14 Creatinine 0.80 Estimated GFR > 60.0 BUN/Creatinine Ratio 17.5 Glucose 95 Calcium 8.6 Magnesium 1.7 Total Bilirubin 1.0 AST 75 H ALT 65 Alkaline Phosphatase 70 Total Protein 6.2 L Albumin 3.1 L Globulin 3.1 Albumin/Globulin Ratio 1.0 Assessment & Plan Plan: Assessment/Plan Narrative: Raymundo Dominguez is a 67-year-old male with a history significant for atrial fibrillation with RVR, elevated LFTs, a long-standing alcohol use disorder until 8 weeks ago who presented for right knee pain and was found to be in atrial fibrillation with RVR. 1. Atrial fibrillation with RVR, present on admission. Active. -The patient presented for right knee pain and was found to be in atrial fibrillation with RVR. He reports has been compliant with metoprolol 12.5 mg BID. -Continue warfarin and check INR daily. -Patient was initially started on a Dilt drip which was weaned off. Will increase and change metoprolol tartrate to 150 mg b.i.d. to better control his rate and provider regimen that he will likely be more compliant with. Will adjust as necessary for rate control. -Echocardiogram did not demonstrate any significant change from previous study; which demonstrated mild LVH normal systolic function with EF of 50%. No valvular or structural abnormalities. 2. Acute hypokalemia, present on admission. Active. -Will continue to replete as necessary. Continue to monitor potassium daily. 3. Pancytopenia, present on admission. Stable. -Likely secondary to chronic alcohol use and likely liver disease -Continue to monitor blood count daily. 4. History of alcohol use disorder, in remission. -The patient reports he has abstained from alcohol for 8 weeks, however, he has reported different time frames to different staff. -Patient has associated elevation of hepatic enzymes with an AST of 154, ALT is 89 and a total bili of 1.6. He shows no jaundice and no evidence of ascites. -No signs of withdrawal symptoms. -Ordered thiamine 100 mg daily. 5. Transaminitis, likely chronic, present on admission. Active. -Secondary to longstanding alcohol use. -AST of 154, ALT is 89 and a total bili of 1.6. He shows no jaundice and no evidence of ascites. -Continue to monitor LFTs daily. 6. Acute on chronic right knee pain, present on admission. Active. -Status post fall 3 weeks previous with pain continuous since a persistent small effusion. -Previous knee films taken found no fractures or dislocations identified degenerative changes. -Patient would warrant further investigation with an MRI for internal derangement, meniscal tear. -Continue physical therapy evaluation and treatment. -Continue gabapentin, cymbalta and tramodol for pain. DVT prophylaxis: Warfarin Disposition: There are several barriers to discharge including: Profound weakness for which the patient would likely benefit from a detention facility, as well as, the patient has no primary care physician as [place] and monitoring of warfarin. Patient will likely be medically ready to discharge and 1-2 days depending upon rate control and improvement in overall strength and mobility.
[2018-10-15 08:00] VITALS: BP 102/56; PULSE 100; RESP 20; TEMP 36.2; O2SAT 95
[2018-10-15] MEDS: DULOXETINE 20 MG CAPSULE PO (08:09)
[2018-10-15] MEDS: THIAMINE 100 MG TABLET PO (08:09)
[2018-10-15] MEDS: ASPIRIN EC 81 MG TABLET PO (08:09)
[2018-10-15] MEDS: GABAPENTIN 300 MG CAPSULE PO (08:11)
[2018-10-15] MEDS: METHOCARBAMOL 500 MG TABLET 750 MG PO (08:11)
[2018-10-15] MEDS: POTASSIUM CHLORIDE 20 MEQ TAB PO (08:11)
[2018-10-15] MEDS: METOPROLOL IR 50 MG TABLET 150 MG PO (08:12)
[2018-10-15] MEDS: TRAMADOL 50 MG TABLET PO (08:15)
[2018-10-15] MEDS: SODIUM CHLORIDE 0.9% FLUSH 10 ML IV (08:15)
[2018-10-15 12:00] VITALS: BP 117/67; PULSE 97; RESP 20; TEMP 36.2; O2SAT 97
--- NOTE | 2018-10-15 14:27 | P.DS_ITS ---
History of Present Illness Date Patient Seen: 10/14/18 Chief complaint: Right Knee Pain/Swelling from fall Narrative: This is a 67-year-old male patient who is admitted from the ER with atrial fibrillation with rapid ventricular response. His presenting complaint was of right knee pain with history of a fall 3 weeks ago with persistent pain since on the anterolateral aspect with joint swelling impaired mobility walking with a walker. Upon evaluation the patient was found to be in atrial fibrillation without complaints of chest pain or shortness of breath but had shortness of breath for the previous 2 days. The patient has been on treatment for atrial fibrillation with metoprolol 12.5 mg b.i.d. warfarin. His previously undergone ablation which has been ineffective in controlling the recipient He provides no history of prior underlying pulmonary disease. The patient has been started on diltiazem drip to be titrated with [place] heart rate is variable from the 110s to 130s. On September 19 patient has relocated to [place] from the [facility] to live with his mother and stepfather. Patient additionally has a history of ETOH abuse consuming approximately a 12 pack of beer daily. Since moving in with his family he has been abstinent per report of Campos, his stepfather who is at bedside during patient evaluation. Family reports no withdrawal symptoms. The patient has been compliant with medications and has no local primary care provider. The patient denies other complaints of pain or problems with no dizziness or headaches has no shortness of breath or cough. Chest x-ray is negative for infiltrates or consolidation. He denies abdominal pain, nausea vomiting, constipation diarrhea he is presently minimally ambulatory using a walker. Has persistent right knee pain with decreased range of motion and pain on weight-bearing. Prior x-ray has been negative. Discharge Providers Date of admission: 10/12/18 17:07 Consults: 10/12/18 20:54 Consult to Dietitian, Adult Routine Comment: Reason For Exam: Hx ETOH abuse, elevated LFTs 10/12/18 20:55 Consult to Discharge Planning Routine Comment: no local PCP, will return to home with family. Consult to Physical Therapy Evaluate & Treat Comment: right knee injury, impared abulation Physician Instructions: Evaluate and Treat Discharge provider: Gisella Jaimes DO Discharge Date: 10/15/18 Summary Discharge Diagnosis: 1. Atrial fibrillation with RVR, present on admission. Stable. 2. Acute hypokalemia, present on admission. Active. 3. Pancytopenia, present on admission. Stable. 4. History of alcohol use disorder, in remission. 5. Transaminitis, unclear acuity, present on admission. Resolved. 6. Right knee pain, present on admission. Active. Hospital Course: Raymundo Dominguez is a 67-year-old male with a history significant for atrial fibrillation with RVR, elevated LFTs, a long-standing alcohol use disorder until 8 weeks ago who presented for right knee pain and was found to be in atrial fibrillation with RVR. 1. Atrial fibrillation with RVR, present on admission. Active. -The patient presented for right knee pain and was found to be in atrial fibrillation with RVR. He reports has been compliant with metoprolol 12.5 mg BID. -Continued warfarin and checked INR daily. Provided PCP's in community accepting new patients and instructed him to make a hospital follow-up immediately after the holiday to monitor warfarin and INR. -Patient was initially started on a Dilt drip which was weaned off. Continued metoprolol tartrate to 150 mg b.i.d. with good rate control. -Echocardiogram did not demonstrate any significant change from previous study; which demonstrated mild LVH normal systolic function with EF of 50%. No valvular or structural abnormalities. 2. Acute hypokalemia, present on admission. Active. -Continued to replete as necessary. Continued to monitor potassium daily. 3. Pancytopenia, present on admission. Stable. -Likely secondary to chronic alcohol use and likely liver disease -Continued to monitor blood count daily. 4. History of alcohol use disorder, in remission. -The patient reports he has abstained from alcohol for 8 weeks, however, he has reported different time frames to different staff. -Patient has associated elevation of hepatic enzymes with an AST of 154, ALT is 89 and a total bili of 1.6. He shows no jaundice and no evidence of ascites. -No signs of withdrawal symptoms. -Continued thiamine 100 mg daily. 5. Transaminitis, unclear acuity, present on admission. Resolved. -Secondary to longstanding alcohol use. -Initial AST of 154, ALT is 89 and a total bili of 1.6. He shows no jaundice and no evidence of ascites. -Continued to monitor LFTs daily. 6. Right knee pain, present on admission. Active. -Status post fall 3 weeks previous with pain continuous since a persistent small effusion. -Previous knee films taken found no fractures or dislocations identified degenerative changes. -Patient may warrant further investigation with an MRI for internal derangement, meniscal tear. -Continued physical therapy evaluation and treatment. -Continued gabapentin, cymbalta and tramodol for pain. DVT prophylaxis: Warfarin Status at Discharge Functional status at discharge: uses cane/walker Exam Vital Signs (past 8 hours): - 10/15/18 08:00 10/15/18 12:00 Temperature 97.2 F L 97.2 F L Pulse Rate 100 H 97 H Respiratory Rate 20 20 Blood Pressure 102/56 L 117/67 Pulse Oximetry 95 97 Oxygen Delivery Method Room Air Oxygen Flow Rate 0 Narrative Exam Narrative: General: Elderly gentleman sitting in bed and no acute distress, appears chronically ill, appropriately interactive. HEENT: Normocephalic, atraumatic. External ears without defect. Pupils equal, round, and reactive to light. Anicteric sclerae, moist conjunctivae, and no lid lag. Poor dentition. Neck: Supple with full range of motion. No lymphadenopathy or thyromegaly. Cardiovascular: Irregularly irregular without murmurs, rubs, or gallops appreciated. Pulmonary: Clear to auscultation bilaterally with end-expiratory wheezes throughout. Normal respiratory effort with no use of accessory muscles. Abdomen: Soft, protuberant, mildly distended, nontender, nondistended. Hepatosplenomegaly present. No masses appreciated. Extremities: No clubbing or cyanosis. Mild bilateral lighted pitting pedal edema. Skin: Normal temperature, turgor, and texture; no rash, ulcers, or subcutaneous nodules appreciated. Neurological: Cranial nerves grossly intact. Profoundly weak with known gait impairment and uses FWW. Psychiatric: Normal mood and flat affect. Alert and oriented to person, place, and time. Objective Labs Result Diagrams: 10/15/18 05:08 10/15/18 05:08 Labs: Laboratory Results - last 24 hr 10/15/18 10/15/18 10/15/18 05:08 05:08 05:08 WBC 5.4 RBC 3.93 L Hgb 12.8 L Hct 38.3 L MCV 97.5 MCH 32.6 MCHC 33.4 RDW 13.5 Plt Count 158 Neut % (Auto) 65.3 Lymph % (Auto) 20.9 L [place] % (Auto) 11.5 Eos % (Auto) 1.5 L Baso % (Auto) 0.8 Neut # (Auto) 3500 PT 26.9 H INR 2.3 H Sodium 135 L Potassium 3.5 Chloride 101 Carbon Dioxide 26 BUN 14 Creatinine 0.80 Estimated GFR > 60.0 BUN/Creatinine Ratio 17.5 Glucose 95 Calcium 8.6 Magnesium 1.7 Total Bilirubin 1.0 AST 75 H ALT 65 Alkaline Phosphatase 70 Total Protein 6.2 L Albumin 3.1 L Globulin 3.1 Albumin/Globulin Ratio 1.0 Discharge Plan Discharge Plan Patient Disposition: Home Discharge comment: You are being discharged home. Please schedule a hospital follow-up within the next week with a primary care in the area for Warfarin management with an INR check. Dr. Susan Thompson at [facility] and Dr. Yonis Carranza at [facility] are taking new patients. You are on a medication called warfarin a blood thinner which requires very close monitoring to ensure that you are anticoagulated to prevent blood clots which could cause stroke or pulmonary embolism which could be potentially fatal. You can become overly anticoagulated and at risk of severe bleeding which could also be fatal. Discharge Med Rec/Prescriptions Prescriptions: New thiamine HCl (vitamin B1) 100 mg tablet 100 mg PO DAILY Qty: 30 RF: 0 warfarin [Coumadin] 2 mg Tablet 2 mg PO 1700 Qty: 30 RF: 0 metoprolol tartrate 50 mg Tablet 150 mg PO BID Qty: 60 RF: 0 Continue aspirin 81 mg Tablet,Delayed Release (Dr/Ec) 81 mg PO DAILY Qty: 60 RF: 0 tramadol 50 mg Tablet 50 mg PO QID PRN (Reason: Pain, Moderate (4-6)) Qty: 60 RF: 0 methocarbamol [Robaxin-750] 750 mg tablet 750 mg PO QID Qty: 60 RF: 0 gabapentin 300 mg capsule 300 mg PO TID Qty: 90 RF: 0 duloxetine [Cymbalta] 20 mg capsule,delayed release(DR/EC) 20 mg PO DAILY Qty: 60 RF: 0 niacin 500 mg capsule, extended release 500 mg PO BEDTIME Qty: 60 RF: 0 omega-3 fatty acids [Fish Oil Concentrate] 1,000 mg capsule 1,000 mg PO DAILY Qty: 60 RF: 0 atorvastatin [Lipitor] 10 mg tablet 10 mg PO BEDTIME Qty: 60 RF: 0 Discontinued metoprolol tartrate 25 mg Tablet 12.5 mg PO BID RF: 0 warfarin [Coumadin] 2 mg Tablet 2 mg PO 1700 Qty: 60 RF: 0 Provider Discharge Instructions Activity: Activity as tolerated please ambulate with a walker at all times. You would benefit from physical therapy either outpatient or at home (PCP must order). Visit Report/Discharge Packet Instructions: DI for Atrial Fibrillation, DI for Warfarin Therapy Visit Report Forms: Stroke Signs & Symptoms Discharge Data Attending Provider: Gisella Jaimes Admit Date/Time: 10/12/18 17:07 Discharges patient from system. Discharge Date/Time: 10/15/18 15:25
--- NOTE | 2018-10-15 15:22 | PC.NURSE ---
pt discahrged to home following lengthy review of medication plan and post hospital care- pt agrees and all questions answered to his and caregiver satisfaction- iv removed and wheeled to exit by hospital staff
== END 2018-10-15 15:25 | disposition home or self-care (01) | DRG 309 ==
LOC: ED 16:54 → ICU 10-13 12:08
PROVIDERS: Nurse Practitioner Adult Health; Admitting Provider Internal Medicine; Emergency Provider Emergency Medicine; Visit Provider Internal Medicine
DX: I48.91 Unspecified atrial fibrillation (principal); D61.818 Other pancytopenia; Z79.01 Long term (current) use of anticoagulants; M25.561 Pain in right knee; E87.6 Hypokalemia; F10.11 Alcohol abuse, in remission; R74.0 Nonspecific elevation of levels of transaminase and lactic acid dehydrogenase [LDH]; Z87.891 Personal history of nicotine dependence
CPT/HCPCS: 36415; 36591; 71045; 73560; 80048; 80053; 82550; 83690; 83735; 83880; 84132; 84484; 85025; 85610; 85730; 87797; 93005; 93307; 96365; 96375; 97162; 97530; 99285; J1940; Q9957

== ENCOUNTER → 2018-11-06 16:22 | Outpatient (CLI) | payer MEDICARE, SELFPAY ==
[2018-10-12 19:15] VITALS: BMI 29.8
[2018-11-06 17:24] LABS: INR 1.3 (0.9-1.3); Prothrombin Time 15.4 SECONDS (10.1-12.7)
[2018-11-06 17:32] LABS: Alanine Aminotransferase 23 IU/L (21-72); Albumin 3.9 g/dL (3.5-5.0); Albumin Globulin Ratio 1.2 (1.0-2.8); Alkaline Phosphatase 75 U/L (38-126); Aspartate Aminotransferase 35 IU/L (17-59); Bilirubin Total 0.4 mg/dL (0.2-1.3); Blood Urea Nitrogen 18 mg/dL (9-20); Calcium 9.3 mg/dL (8.4-10.2); Carbon Dioxide 31 mmol/L (22-32); Chloride 102 mmol/L (98-107); Estimated Glomerular Filt Rate > 60.0 mL/min (>60); Ethanol (ETOH) < 10 mg/dL; Globulin 3.3 g/dL (1.7-4.1); Glucose 91 mg/dL (80-110); HEMOLYSIS 16 (0-50); Potassium 4.7 mmol/L (3.4-5.1); Sodium 141 mmol/L (137-145); Total Protein 7.2 g/dL (6.3-8.2)
[2018-11-06 17:38] LABS: Add Manual Diff / Slide Review NO; Basophils Absolute Auto 0 /uL (0-100); Basophils Percent Auto 0.7 % (0-2); Eosinophils Absolute Auto 100 /uL (0-450); Eosinophils Percent Auto 2.3 % (2-4); Hematocrit 38.3 % (41-53); Hemoglobin 12.5 g/dL (13.5-17.5); Lymphocytes Absolute Auto 1300 /uL (1100-4500); Mean Corpuscular HGB Conc 32.6 % (30-36); Mean Corpuscular Volume 98.1 fL (80-100); Monocytes Absolute Auto 500 /uL (0-900); Monocytes Percent Auto 9.4 % (3-14); Neutrophils Absolute Auto 3100 /uL (1500-7000); Neutrophils Percent Auto 61.6 % (50-75); Platelet Count 123 X10^3/uL (150-400); Red Blood Cell Count 3.91 X10^6/uL (4.5-5.9); Red Cell Distribution Width 14.4 % (11.6-14.8); White Blood Cell Count 5.1 X10^3/uL (4.5-11.0)
== END ==
PROVIDERS: PCP Internal Medicine; Visit Provider Internal Medicine
DX: I48.0 Paroxysmal atrial fibrillation (principal); R94.5 Abnormal results of liver function studies
CPT/HCPCS: 36415; 80053; 80320; 85025; 85610

== ENCOUNTER → 2018-11-27 09:09 | Outpatient (CLI) | payer MEDICARE, SELFPAY ==
[2018-10-12 19:15] VITALS: BMI 29.8
--- NOTE | 2018-11-27 09:12 | DI.US.S_ITS ---
PROCEDURE: US ABDOMEN COMPLETE INDICATIONS: CIRRHOSIS TECHNIQUE: Real-time scanning was performed of the abdominal and retroperitoneal organs, with image documentation. COMPARISON: None. FINDINGS: Liver: Liver is normal in size and homogeneous in echotexture. Liver is diffusely echogenic with nodular margins compatible with reported history of hepatic cirrhosis. No focal hepatic mass lesions. Gallbladder: Multiple mobile gallstones within the gallbladder lumen. No gallbladder wall thickening. No pericholecystic fluid. No sonographic Viera sign. Biliary ducts: Intrahepatic bile ducts are non-dilated. Extrahepatic bile duct caliber measures 7 mm. Normal is 6-7 mm or less in diameter, or 10 mm or less post-cholecystectomy. Pancreas: Visualized portions of the pancreas are sonographically normal. Head and tail of pancreas are poorly visualized due to bowel gas. Spleen: Spleen is normal in homogeneous in echotexture. Spleen is mildly enlarged measuring 15.6 cm in longitudinal axis. Kidneys: Kidneys are normal in size and echotexture. Right kidney measures 10.8 cm long; left kidney measures 9.9 cm long. No hydronephrosis or nephrolithiasis. No solid masses. Aorta: Not visualized due to bowel gas and cannot be evaluated Iliacs: Not visualized due to bowel gas and cannot be evaluated. IVC: Intrahepatic inferior vena cava is patent. Miscellaneous: No free abdominal fluid. IMPRESSION: 1. Echogenic liver with nodular hepatic margin compatible with hepatic cirrhosis. 2. Mild splenomegaly concerning for sequela of chronic portal hypertension. 3. Cholelithiasis without sonographic evidence of cholecystitis. 4. Common bile duct at the upper limits of normal in diameter. Recommend correlation with laboratory data to exclude biliary obstruction. Dictated by: Marylou Liriano MD, PhD on 11/27/2018 at 12:27 Approved by: Marylou Liriano MD, PhD on 11/27/2018 at 12:30
== END ==
PROVIDERS: PCP Internal Medicine; Visit Provider Internal Medicine
DX: K74.60 Unspecified cirrhosis of liver (principal); R16.1 Splenomegaly, not elsewhere classified; K80.80 Other cholelithiasis without obstruction
CPT/HCPCS: 76700